=== PATIENT | female | born 1965 | race Caucasian/White ===

== ENCOUNTER 2019-01-07 20:09 | Inpatient (IN) | payer SELFPAY ==
[~2019-01-07 20:09] MED LIST: ISOVUE-370 76%-LOCM 1 ML ONE
[2019-01-07 21:23] LABS: #Basophils 0.1 thou/uL (0.0-0.2); #Eosinphils 0.1 thou/uL (0.0-0.7); #Lymphocytes 2.1 thou/uL (1.20-3.40); #Monocytes 0.6 thou/uL (0.11-0.59); #Neutrophils 3.8 thou/uL (1.40-6.50); %Eosinophils 1.2 % (0.0-10.0); %Lymphocytes 31.6 % (21.0-51.0); %Monocytes 8.3 % (0.0-10.0); %Neutrophils 57.9 % (42.0-75.0); ALT (SGPT) 47 U/L (8-55); AST (SGOT) 276 U/L (5-34); Albumin 2.8 g/dL (3.5-5.0); Alkaline Phosphatase 179 U/L (40-150); Anion Gap 12 mmol/L (10-20); BUN (Urea Nitrogen) 4 mg/dL (9.8-20.1); Bilirubin, Total 6.5 mg/dL (0.2-1.2); Calc. Creatinine Clearance 0 mL/min (70-130); Calcium 8.5 mg/dL (7.8-10.44); Carbon Dioxide 33 mmol/L (22-29); Chloride 89 mmol/L (98-107); Estimated GFR-MDRD Greater than 90; Globulin 4.7 g/dL (2.4-3.5); Glucose 114 mg/dL (70-105); Hemoglobin 11.9 g/dL (12.0-16.0); Lipase 55 U/L (8-78); Mean Corpuscular HGB CONC 33.2 g/dL (32.0-36.0); Mean Corpuscular Hemoglobin 34.5 pg (27.0-31.0); Mean Platelet Volume 10.2 fL (7.4-10.4); Platelet Count 70 thou/uL (130-400); Platelet Morphology Comment Appears Decreased; Protein, Total 7.5 g/dL (6.0-8.3); RBC Distribution Width 12.5 % (11.5-14.5); Red Blood Cell (RBC) Count 3.46 mill/uL (4.20-5.40); Sodium 131 mmol/L (136-145); White Blood Cell (WBC) Count 6.6 thou/uL (4.8-10.8)
[2019-01-07 21:28] LABS: Potassium 2.8 mmol/L (3.5-5.1)
[2019-01-07 22:11] LABS: Bilirubin Large (Negative); Blood, Urine Negative (Negative); Clarity TURBID (Clear); Glucose, Urine (Dipstick) Negative (Negative); Leukocyte Moderate (Negative); Nitrite Positive (Negative); Protein, Urine (Dipstick) Trace mg/dL (Neg-Trace); RBC/HPF 0-3 HPF (0-3); Specific Gravity, Urine 1.018 (1.002-1.036); WBC/HPF 21-50 HPF (0-3); pH, Urine 5.5 (5.0-9.0)
[2019-01-07 22:12] LABS: Hyaline Casts/LPF >50 HYALINE CAST LPF (0-3 Hyaline); Pathc Cast-AUWi Flag 34.48 (0-2.49); Yeast-AUWi Flag 112.9 (0-25.0)
[2019-01-07 22:17] LABS: Bacteria/HPF 4+ HPF (None Seen)
[2019-01-07 22:18] LABS: Other Casts/LPF 7-10 COARSE GRAN LPF (0-3 Hyaline)
[2019-01-07] MEDS ORDERED: diphenhydrAMINE 50 MG/ML VIAL ONE (22:30)
[2019-01-07] MEDS ORDERED: Metoclopramide HCl 10 MG/2 ML VIAL ONE (22:30)
[2019-01-07] MEDS ORDERED: Pot Chloride/Pot Bicarb/Cit Ac 25 mEq Effervescent Tablet ONE (22:35)
[2019-01-07] MEDS ORDERED: Potassium Bicarbonate/Cit Ac 25 MEQ TAB ONE (22:36)
[2019-01-07] MEDS ORDERED: Nitrofurantoin Macrocrystal 50 MG CAP PO SCH (23:15)
[2019-01-08] MEDS ORDERED: Piperacillin/Tazobactam 4.5 GM VIAL ONE (03:50)
[2019-01-08 03:53] LABS: INR-International Normal Ratio 1.6; PTT 40.4 SEC (22.9-36.1); Prothrombin Time 19.5 SEC (12.0-14.7)
[2019-01-08] MEDS ORDERED: Ondansetron PF 4 MG/2 ML Vial ONE ×2 (04:03→10:48)
[2019-01-08 05:15] LABS: HBCM Index 0.06 S/CO (0-0.79); HBSAg Index 0.32 S/CO (0-0.99); Hep A IgM AB Non-Reactive (NonReactive); Hep B Surf Ag Non-Reactive S/CO (NonReactive); Hepatitis B Core IgM Abs Non-Reactive (NonReactive)
[2019-01-08 05:20] LABS: Hep C IgG Ab Reflex HepC Qnt (NonReactive); Hep C Index 7.32 S/CO (0-0.79)
--- NOTE | 2019-01-08 07:13 | CT ---
CT ABDOMEN AND PELVIS WITH IV CONTRAST: Date: 01/07/19 HISTORY: Right lower quadrant abdominal pain. FINDINGS: A small hiatal hernia is present. There is decreased attenuation of the liver compared to the spleen consistent with fatty infiltration. No hepatic mass is seen. The spleen, pancreas, and adrenal glands are normal. Small low density lesions in the kidneys are likely cysts. The gallbladder is distended with multiple calcified gallstones. There is a moderate amount of free fluid in the abdomen and pelvi s. There are vascular calcifications without evidence of aneurysmal dilatation of the abdominal aorta. N o pneumoperitoneum or lymphadenopathy is seen. A recanalized umbilical vein is present. No evidence o f portal vein or splenic vein thrombosis. Uterus is present. There are degenerative changes in the spine. The small bowel loops are not abnorma lly dilated. There is tiny left pleural effusion. IMPRESSION: 1. Mild patchy infiltrates versus atelectatic changes at the lung bases. 2. Tiny left pleural effusions. 3. Fatty liver. 4. Ascites. 5. Cholelithiasis. 6. Small renal cysts. 7. Small hiatal hernia. POS: [facility]
--- NOTE | 2019-01-08 07:20 | ULT ---
ULTRASOUND ABDOMEN: Date: 01/08/19 HISTORY: Abdominal pain, nausea and vomiting. FINDINGS: The liver demonstrates increased echogenicity with intrahepatic ductal dilatation of the left lobe. T here is echogenic sludge and small shadowing gallstones in a distended gallbladder. The gallbladder w all is thickened, measuring 5.0 mm. The common duct measures 6.0 mm in diameter. The right kidney is normal. The pancreas is obscured by overlying bowel gas. There is free fluid consistent with mild asc ites in the right upper quadrant. There is decreased blood flow in the main portal vein with hepatofu gal flow. IMPRESSION: 1. Fatty liver. 2. Distended gallbladder with sludge, small shadowing gallstones and gallbladder wall thickening. 3. Mild ascites. 4. Decreased flow in the main portal vein with hepatofugal flow. 5. If there is concern for acute cholecystitis, further evaluation with HIDA scan would be helpful. POS: [facility]
[2019-01-08] MEDS ORDERED: Sodium Chloride 0.9% 1,000 ML IV SCH (08:45)
[2019-01-08] MEDS ORDERED: Dicyclomine 20 MG TAB ONE ×2 (09:17→16:23)
[2019-01-08] MEDS: Dicyclomine 20 MG TAB PO SCH ×4 (09:19→20:30)
[2019-01-08 09:21] LABS: Anion Gap 13 mmol/L (10-20); BUN (Urea Nitrogen) Less than 4 mg/dL (9.8-20.1); Calc. Creatinine Clearance 0 mL/min (70-130); Carbon Dioxide 32 mmol/L (22-29); Chloride 94 mmol/L (98-107); Estimated GFR-MDRD Greater than 90; Glucose 81 mg/dL (70-105); Sodium 136 mmol/L (136-145)
[2019-01-08] MEDS: Multivitamins, Adult 10 ML, Folic Acid 1 MG, Thiamine HCl 100 MG in Dextrose 5 %-0.45 %... IV SCH (10:00)
[2019-01-08 10:34] LABS: Folate (Folic Acid) 2.3 ng/mL (7.0-31.4)
[2019-01-08] MEDS: Ondansetron PF 4 MG/2 ML Vial IVP PRN ×2 (10:49→18:22)
[2019-01-08 11:27] LABS: Medtox Reader # READER 4; THC/Cannabinoid Screen Detected (NotDetected)
[2019-01-08 11:28] LABS: Amphetamine Not Detected (NotDetected); Barbiturates Screen Not Detected (NotDetected); Benzodiazepine Screen Not Detected (NotDetected); Cocaine Metabolite Screen Not Detected (NotDetected); Medtox Control Line Valid? VALID (VALID); Methadone Not Detected (NotDetected); Methamphetamine Not Detected (NotDetected); Opiate Screen Not Detected (NotDetected); Oxycodone Screen Not Detected (NotDetected); Phencyclidine (PCP) Not Detected (NotDetected); Tricyclic Screen Not Detected (NotDetected)
[2019-01-08] MEDS ORDERED: Lorazepam 2 MG/ML VIAL SLOW IVP PRN (12:36)
[2019-01-08] MEDS ORDERED: Lorazepam 2 MG/ML VIAL ONE (12:46)
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
[2019-01-08] MEDS ORDERED: Morphine 4 MG/ML VIAL ONE (16:22)
--- NOTE | 2019-01-08 16:24 | NM ---
EXAM: Nuclear medicine hepatobiliary scan: HISTORY: Abdominal pain, vomiting, cholelithiasis COMPARISON: None. RADIOPHARMACEUTICAL: 4.9 mcI technetium 99m labeled mebrofenin intravenously. FINDINGS: There is opacification of an enlarged liver with excretion into the gallbladder and emptying into the bowel by 60 minutes. Following administration of: 8 ounces of ensure, gallbladder ejection fraction equals8% which is abno rmally low. IMPRESSION: Hepatomegaly with abnormally low gallbladder ejection fraction. No evidence for cystic duct obstructi on.
[2019-01-08] MEDS: Morphine 4 MG/ML VIAL SLOW IVP PRN (16:27)
[2019-01-08] MEDS ORDERED: Potassium Chloride 20 MEQ TAB PO SCH (17:00)
--- NOTE | 2019-01-08 17:45 | PDOC.EVN ---
Event Note - Event Note Event Note: Came to evaluate patient after HIDA scan. Patient extremely tremulous and nervous, and continues to have some vomiting. Suspect impending DTs. Care discussed with Dr. Maya. Will move patient to inpatient status. Will increase IV Lorazepam to 1 mg Q6 hours, continue banana bag Q 24 hours. Also reviewed case with Dr. Huizar, who does not recommend falguni given chronicity of problem. Continue anti-emetics.
[2019-01-08 17:49] VITALS: BMI 22.6
[2019-01-08] MEDS: Sodium Chloride 0.9% 1,000 ML IV SCH (18:19)
[2019-01-08] MEDS: Lorazepam 2 MG/ML VIAL SLOW IVP SCH ×2 (18:23→23:26)
[2019-01-08] MEDS: cefTRIAXone\\ROCEPHIN 1 GM in Sodium Chloride 0.9% 100 ML IVPB SCH (18:26)
[2019-01-08] MEDS ORDERED: Nitrofurantoin Monohyd/M-Cryst 100 MG CAP PO SCH (21:00)
[2019-01-08] MEDS: diphenhydrAMINE 25 MG CAP PO PRN (22:12)
[2019-01-08 23:36] LABS: Potassium 3.4 mmol/L (3.5-5.1)
[2019-01-09 05:05] LABS: ALT (SGPT) 38 U/L (8-55); AST (SGOT) 245 U/L (5-34); Albumin 2.4 g/dL (3.5-5.0); Alkaline Phosphatase 151 U/L (40-150); Anion Gap 8 mmol/L (10-20); BUN (Urea Nitrogen) 6 mg/dL (9.8-20.1); Bilirubin, Total 8.3 mg/dL (0.2-1.2); Calc. Creatinine Clearance 96 mL/min (70-130); Calcium 8.1 mg/dL (7.8-10.44); Carbon Dioxide 34 mmol/L (22-29); Chloride 95 mmol/L (98-107); Estimated GFR-MDRD Greater than 90; Glucose 73 mg/dL (70-105); Potassium 3.5 mmol/L (3.5-5.1); Protein, Total 6.4 g/dL (6.0-8.3); Sodium 133 mmol/L (136-145)
[2019-01-09] MEDS: Lorazepam 2 MG/ML VIAL SLOW IVP SCH ×4 (05:22→23:22)
[2019-01-09] MEDS: Sodium Chloride 0.9% 1,000 ML IV SCH (08:27)
[2019-01-09] MEDS: Dicyclomine 20 MG TAB PO SCH ×4 (08:28→20:10)
--- NOTE | 2019-01-09 08:56 | PDOC.PN ---
- Subjective Encounter Start Date: 01/09/19 Encounter Start Time: 08:54 Subjective: still has vague abd discomfort - Objective Resuscitation Status - Order Detail: 01/08/19 08:37 Resuscitation Status Routine Co-Sign Provider: Resuscitation Status: FULL: Full Resuscitation Discussed with: Patient YOLETTE Reviewed: Yes Vital Signs & Weight: Vital Signs (12 hours) Temp Pulse Resp BP BP BP Pulse Ox 01/09/19 08:20 106 H 95/57 L 01/09/19 08:00 99.1 F 120 H 18 95/57 L 92 L 01/09/19 04:00 98.8 F 116 H 18 121/71 92 L 01/08/19 23:58 99.1 F 107 H 18 114/69 92 L Weight Weight 119 lb 14.903 oz I&O: 01/08/19 01/09/19 01/10/19 06:59 06:59 06:59 Intake Total 1300 708 Output Total 200 Balance 1100 708 Result Diagrams: 01/07/19 20:53 01/09/19 04:40 Phys Exam - Physical Examination Neck: no JVD Respiratory: clear to auscultation bilateral Cardiovascular: RRR, no significant murmur Gastrointestinal: soft distended, absent bowel sounds Musculoskeletal: no edema Dx/Plan (1) Ileus Code(s): K56.7 - ILEUS, UNSPECIFIED Status: Acute (2) Cholelithiases Code(s): K80.20 - CALCULUS OF GALLBLADDER W/O CHOLECYSTITIS W/O OBSTRUCTION Status: Acute Qualifiers: Cholelithiasis location: gallbladder Cholecystitis acuity: acute Biliary obstruction: without biliary obstruction (3) UTI (urinary tract infection) Status: Acute Qualifiers: Urinary tract infection type: acute cystitis Hematuria presence: without hematuria Qualified Code(s): N30.00 - Acute cystitis without hematuria (4) Hepatitis C Code(s): B19.20 - UNSPECIFIED VIRAL HEPATITIS C WITHOUT HEPATIC COMA Status: Chronic Qualifiers: Viral hepatitis chronicity: chronic Hepatic coma status: without hepatic coma Qualified Code(s): B18.2 - Chronic viral hepatitis C (5) Alcohol withdrawal Code(s): F10.239 - ALCOHOL DEPENDENCE WITH WITHDRAWAL, UNSPECIFIED Status: Acute Qualifiers: Complication of substance-induced condition: with unspecified complication Qualified Code(s): F10.239 - Alcohol dependence with withdrawal, unspecified - Plan 2 view abd -: cont lorazepam, banana bag * .
[2019-01-09] MEDS: Multivitamins, Adult 10 ML, Folic Acid 1 MG, Thiamine HCl 100 MG in Dextrose 5 %-0.45 %... IV SCH (09:51)
--- NOTE | 2019-01-09 09:52 | RAD ---
EXAM: XR Abdomen 2 View PROVIDED CLINICAL HISTORY: Vomiting COMPARISON: CT 01/07/2019 FINDINGS: The visualized lung bases demonstrate bibasilar pleural and/or parenchymal opacity. There is no evide nce for pneumoperitoneum. The abdominal bowel gas pattern is nonspecific. No radiographically apparen t urinary tract calculi. IMPRESSION: Nonspecific bowel gas pattern.
[2019-01-09] MEDS: Morphine 4 MG/ML VIAL SLOW IVP PRN (12:52)
[2019-01-09] MEDS: diphenhydrAMINE 25 MG CAP PO PRN ×2 (13:39→22:09)
[2019-01-09] MEDS: cefTRIAXone\\ROCEPHIN 1 GM in Sodium Chloride 0.9% 100 ML IVPB SCH (17:35)
[2019-01-10] MEDS ORDERED: ALPRAZolam 0.5 MG TAB PO PRN (00:56)
[2019-01-10] MEDS: Sodium Chloride 0.9% 1,000 ML IV SCH ×2 (01:05→17:40)
[2019-01-10] MEDS: Morphine 4 MG/ML VIAL SLOW IVP PRN ×3 (01:55→22:17)
[2019-01-10] MEDS: Lorazepam 2 MG/ML VIAL SLOW IVP SCH ×4 (05:39→23:11)
--- NOTE | 2019-01-10 11:30 | PDOC.PN ---
- Subjective Encounter Start Date: 01/10/19 Encounter Start Time: 11:28 Subjective: hallucinating during past 4 hrs, no calm, apropriate - Objective Resuscitation Status - Order Detail: 01/08/19 08:37 Resuscitation Status Routine Co-Sign Provider: Resuscitation Status: FULL: Full Resuscitation Discussed with: Patient YOLETTE Reviewed: Yes Vital Signs & Weight: Vital Signs (12 hours) Temp Pulse Resp BP BP Pulse Ox 01/10/19 08:00 98.8 F 111 H 20 104/63 97 01/10/19 04:00 98.2 F 97 16 117/77 94 L 01/10/19 03:55 94 L Weight Weight 119 lb 14.903 oz I&O: 01/09/19 01/10/19 01/11/19 06:59 06:59 06:59 Intake Total 1300 3108 Output Total 200 Balance 1100 3108 Result Diagrams: 01/07/19 20:53 01/09/19 04:40 Phys Exam - Physical Examination Neck: no JVD Respiratory: clear to auscultation bilateral Cardiovascular: RRR, no significant murmur Gastrointestinal: soft, positive bowel sounds minimal tenderness Neurological: non-focal mildly tremulous Dx/Plan (1) Ileus Code(s): K56.7 - ILEUS, UNSPECIFIED Status: Ruled-out (2) Cholelithiases Code(s): K80.20 - CALCULUS OF GALLBLADDER W/O CHOLECYSTITIS W/O OBSTRUCTION Status: Acute Qualifiers: Cholelithiasis location: gallbladder Cholecystitis acuity: acute Biliary obstruction: without biliary obstruction (3) UTI (urinary tract infection) Status: Acute Qualifiers: Urinary tract infection type: acute cystitis Hematuria presence: without hematuria Qualified Code(s): N30.00 - Acute cystitis without hematuria (4) Hepatitis C Code(s): B19.20 - UNSPECIFIED VIRAL HEPATITIS C WITHOUT HEPATIC COMA Status: Chronic Qualifiers: Viral hepatitis chronicity: chronic Hepatic coma status: without hepatic coma Qualified Code(s): B18.2 - Chronic viral hepatitis C (5) Alcohol withdrawal Code(s): F10.239 - ALCOHOL DEPENDENCE WITH WITHDRAWAL, UNSPECIFIED Status: Acute Qualifiers: Complication of substance-induced condition: with delirium Qualified Code(s ): F10.231 - Alcohol dependence with withdrawal delirium - Plan cont banana bag daily, cont lorazepam iv prn. -: GI consult for help sorting out etiology of discomfort, hepatitis, -: cholelithiasis, SBP, ETC * .
[2019-01-10] MEDS: Dicyclomine 20 MG TAB PO SCH ×4 (11:41→22:15)
[2019-01-10] MEDS: Multivitamins, Adult 10 ML, Folic Acid 1 MG, Thiamine HCl 100 MG in Dextrose 5 %-0.45 %... IV SCH (11:45)
[2019-01-10] MEDS ORDERED: Sodium Bicarbonate 2.5 MEQ/5 ML VIAL ONE (14:34)
--- NOTE | 2019-01-10 15:43 | ULT ---
US Paracentesis with Imaging History: [Cirrhosis. Abdominal pain.] Comparison: CT abdomen pelvis January 07, 2019 Findings: Patient was brought to the ultrasound suite. All questions were answered. Informed consent was obtained. Timeout performed. Patient's right lower quadrant was prepped and draped in normal sterile fashion. 3 mL peripheral lido daniel was instilled into the superficial and deep soft tissues. Using a 20-gauge spinal needle at total of 6 mL of straw-colored fluid was aspirated. Patient tolerated procedure well without complica tion. Impression: Technically successful ultrasound-guided diagnostic paracentesis.
[2019-01-10 15:56] LABS: Body Fluid Source Ascites Body Fluid
[2019-01-10 15:57] LABS: BF Color Yellow; BF RBC Count - Manual 158 /cumm; BF WBC/Nonhematics Ct. - Manua 63 /cumm; Clarity Hazy (Clear); Tube # EDTA
[2019-01-10 16:12] LABS: Fluid, LDH 48 U/L (Not Available); Fluid, Protein Less than 1.0 g/dL (Not Available)
[2019-01-10 16:33] LABS: BF Segmented Neutrophils 4 %; Cell Count Non Hematic 25 %; Lymphocytes 71 %
[2019-01-10] MEDS: cefTRIAXone\\ROCEPHIN 1 GM in Sodium Chloride 0.9% 100 ML IVPB SCH (17:41)
[2019-01-10] MEDS: diphenhydrAMINE 25 MG CAP PO PRN (22:16)
[2019-01-10] MEDS ORDERED: Morphine 4 MG/ML VIAL SLOW IVP PRN (23:38)
[2019-01-11] MEDS ORDERED: Senokot S 8.6-50 MG TAB PO SCH (00:15)
[2019-01-11] MEDS: Lorazepam 2 MG/ML VIAL SLOW IVP SCH (05:34)
[2019-01-11] MEDS: Sodium Chloride 0.9% 1,000 ML IV SCH (08:29)
[2019-01-11] MEDS: Dicyclomine 20 MG TAB PO SCH ×4 (08:30→20:14)
[2019-01-11] MEDS: Senokot S 8.6-50 MG TAB PO SCH ×2 (08:30→20:14)
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
[2019-01-11] MEDS ORDERED: Polyethylene Glycol 3350 17 GM Packet PO SCH (09:00)
[2019-01-11] MEDS: prednisoLONE 15 MG/5 ML UDCUP PO SCH (10:23)
[2019-01-11] MEDS ORDERED: Sodium Chloride 0.9% 1,000 ML IV SCH (10:28)
[2019-01-11] MEDS ORDERED: Sodium Chloride 0.9% 500 ML IV SCH (11:00)
[2019-01-11] MEDS ORDERED: Albumin 25% 25 GM/100 ML BOT IVPB SCH (11:15)
[2019-01-11 11:21] LABS: HCV log10 2.301 (.); Hep C PCR-Quant 200 IU/mL (.)
[2019-01-11 11:24] LABS: #Eosinphils 0.1 thou/uL (0.0-0.7); #Lymphocytes 1.3 thou/uL (1.20-3.40); #Monocytes 0.9 thou/uL (0.11-0.59); %Basophils 0.5 % (0.0-1.0); %Eosinophils 1.2 % (0.0-10.0); %Lymphocytes 20.5 % (21.0-51.0); %Monocytes 13.7 % (0.0-10.0); %Neutrophils 64.1 % (42.0-75.0); Hemoglobin 9.7 g/dL (12.0-16.0); Mean Corpuscular HGB CONC 31.8 g/dL (32.0-36.0); Mean Corpuscular Hemoglobin 34.1 pg (27.0-31.0); Mean Platelet Volume 9.9 fL (7.4-10.4); Platelet Count 73 thou/uL (130-400); RBC Distribution Width 12.9 % (11.5-14.5); Red Blood Cell (RBC) Count 2.83 mill/uL (4.20-5.40); White Blood Cell (WBC) Count 6.3 thou/uL (4.8-10.8)
[2019-01-11 11:56] LABS: Anion Gap 9 mmol/L (10-20); BUN (Urea Nitrogen) 11 mg/dL (9.8-20.1); Calc. Creatinine Clearance 109 mL/min (70-130); Calcium 7.3 mg/dL (7.8-10.44); Carbon Dioxide 27 mmol/L (22-29); Chloride 100 mmol/L (98-107); Estimated GFR-MDRD Greater than 90; Glucose 98 mg/dL (70-105); Potassium 3.3 mmol/L (3.5-5.1); Sodium 133 mmol/L (136-145)
[2019-01-11] MEDS: Nystatin 500,000 UNITS/5 ML UDCUP SSW SCH ×3 (13:40→20:14)
[2019-01-11] MEDS: Multivitamins, Adult 10 ML, Folic Acid 1 MG, Thiamine HCl 100 MG in Dextrose 5 %-0.45 %... IV SCH (13:40)
--- NOTE | 2019-01-11 16:56 | PRG ---
DATE OF SERVICE: SUBJECTIVE: This is a 53-year-old female with abdominal pain and abnormal LFTs hospitalized because of the above reason. The patient has had an abdominal CAT scan which reveals a gallstone. The patient has been given Xanax and Ativan, also has some morphine for pain. I saw her several times yesterday, but she was very sleepy and very difficult to arose. This morning again the same thing. She was very sleepy. She had a dose of Ativan this morning at 6. The patient had a diagnostic paracentesis to rule out SBP. The ascitic fluid was basically a transude and does not show any evidence of SBP. Her serum ammonia level is actually 39, which is not high. From the workup so far, it appears she has chronic liver disease, possibly liver cirrhosis, and ascites. She also has positive HCV antibody. The hep C RNA has been ordered and is still pending. PHYSICAL EXAMINATION: GENERAL: Very sleepy, arousable, but very difficult to talk to in a conversation. Tend to fall asleep. VITAL SIGNS: Afebrile. Pulse is 95, blood pressure is 106/68. She is icteric. CARDIOVASCULAR: Lungs within normal limits. ABDOMEN: Distended with ascites. Abdomen is nontender even though she complains of abdominal pain. LABORATORY DATA: From today lytes are normal. Potassium 3.3, glucose is 98, calcium is 7.3. CBC: Hemoglobin 9.7, hematocrit 30.4, MCV 107, platelet count is 73 due to her hypersplenism from liver cirrhosis. IMPRESSION: 1. Abdominal pain and findings of liver cirrhosis with lab data. 2. Positive HCV antibody. Her HCV-RNA pending. 3. Ascites. Spontaneous bacterial peritonitis ruled out by negative paracentesis itself. 4. Normal ammonia level, but she is kind of drowsy, mostly from the pain medication and also the Ativan and Xanax. Although, I had seen her several times, I had difficulty having any concrete ideas on what is going on with this lady as she is mostly sleepy and difficult to get a proper history. I instructed the nurse to cut off all the sedatives. Dr. Villasenor is on-call for me and he will evaluate the patient again tomorrow. We will make further recommendations physical findings. Because of her age and family history of colon cancer, I believe she probably should have an esophagogastroduodenoscopy and colonoscopy. This can be done by Dr. Villasenor, who is on-call for me. Job ID: [id number]
[2019-01-11] MEDS: cefTRIAXone\\ROCEPHIN 1 GM in Sodium Chloride 0.9% 100 ML IVPB SCH (17:13)
[2019-01-11] MEDS: Lorazepam 2 MG/ML VIAL SLOW IVP PRN (20:21)
[2019-01-11] MEDS: diphenhydrAMINE 25 MG CAP PO PRN (23:52)
[2019-01-12] MEDS: Sodium Chloride 0.9% 1,000 ML IV SCH ×3 (01:18→20:50)
[2019-01-12] MEDS: Lorazepam 2 MG/ML VIAL SLOW IVP PRN ×3 (02:41→22:16)
[2019-01-12 08:17] LABS: ALT (SGPT) 32 U/L (8-55); AST (SGOT) 156 U/L (5-34); Albumin 2.3 g/dL (3.5-5.0); Alkaline Phosphatase 105 U/L (40-150); Anion Gap 9 mmol/L (10-20); BUN (Urea Nitrogen) 7 mg/dL (9.8-20.1); Bilirubin, Total 8.9 mg/dL (0.2-1.2); Calc. Creatinine Clearance 133 mL/min (70-130); Calcium 7.8 mg/dL (7.8-10.44); Carbon Dioxide 27 mmol/L (22-29); Chloride 102 mmol/L (98-107); Estimated GFR-MDRD Greater than 90; Globulin 3.5 g/dL (2.4-3.5); Glucose 85 mg/dL (70-105); Potassium 3.1 mmol/L (3.5-5.1); Protein, Total 5.8 g/dL (6.0-8.3); Sodium 135 mmol/L (136-145)
[2019-01-12] MEDS: Senokot S 8.6-50 MG TAB PO SCH ×2 (08:50→20:53)
[2019-01-12] MEDS: Nystatin 500,000 UNITS/5 ML UDCUP SSW SCH ×4 (08:51→20:52)
[2019-01-12] MEDS: Dicyclomine 20 MG TAB PO SCH ×3 (08:51→18:10)
[2019-01-12] MEDS: prednisoLONE 15 MG/5 ML UDCUP PO SCH (08:55)
[2019-01-12] MEDS: Multivitamins, Adult 10 ML, Folic Acid 1 MG, Thiamine HCl 100 MG in Dextrose 5 %-0.45 %... IV SCH (11:41)
--- NOTE | 2019-01-12 13:35 | PDOC.PN ---
- Subjective Encounter Start Date: 01/11/19 Encounter Start Time: 10:00 Subjective: pt up in bed confused - Objective Resuscitation Status - Order Detail: 01/08/19 08:37 Resuscitation Status Routine Co-Sign Provider: Resuscitation Status: FULL: Full Resuscitation Discussed with: Patient Vital Signs & Weight: Vital Signs (12 hours) Temp Pulse Resp BP BP BP Pulse Ox 01/12/19 08:25 98.0 F 85 20 113/76 92 L 01/12/19 04:00 119/71 01/12/19 03:44 97.5 F L 85 20 119/71 93 L Weight Admit Weight 119 lb 14.4 oz Weight 119 lb 14.4 oz I&O: 01/11/19 01/12/19 01/13/19 06:59 06:59 06:59 Intake Total 2060 1320 Output Total 250 550 Balance 1810 770 Result Diagrams: 01/11/19 11:12 01/12/19 07:51 Phys Exam - Physical Examination Respiratory: no wheezing, no rales, no rhonchi, wheezing present, clear to auscultation bilateral Cardiovascular: RRR, no significant murmur, no rub, gallop, irregular Gastrointestinal: soft, non-tender, no distention, positive bowel sounds Musculoskeletal: no edema, pulses present, edema present Deviation from normal: oriented x2 but cannot have a conversation Dx/Plan (1) Alcoholic hepatitis Code(s): K70.10 - ALCOHOLIC HEPATITIS WITHOUT ASCITES Status: Acute (2) Alcohol withdrawal Code(s): F10.239 - ALCOHOL DEPENDENCE WITH WITHDRAWAL, UNSPECIFIED Status: Acute Qualifiers: Complication of substance-induced condition: with delirium Qualified Code(s ): F10.231 - Alcohol dependence with withdrawal delirium (3) Hepatitis C Code(s): B19.20 - UNSPECIFIED VIRAL HEPATITIS C WITHOUT HEPATIC COMA Status: Chronic Qualifiers: Viral hepatitis chronicity: chronic Hepatic coma status: without hepatic coma Qualified Code(s): B18.2 - Chronic viral hepatitis C (4) UTI (urinary tract infection) Status: Acute Qualifiers: Urinary tract infection type: acute cystitis Hematuria presence: without hematuria Qualified Code(s): N30.00 - Acute cystitis without hematuria - Plan will discontinue scheduled ativan, pt's maddrey score indicated >32 -: will add prednisolone, No sbp on fluid, continue abx for uti -: will give pt extra fluid due to poor output -: nystatin for oral yeast * . Review of Systems - Review of Systems Respiratory: negative: Cough, Dry, Shortness of Breath, Hemoptysis, SOB with Excertion, Pleuritic Pain, Sputum, Wheezing Cardiovascular: negative: chest pain, palpitations, orthopnea, paroxysmal nocturnal dyspnea, edema, light headedness, other Gastrointestinal: Abdominal Pain - Medications/Allergies Allergies/Adverse Reactions: Allergies Allergy/AdvReac Type Severity Reaction Status Date / Time No Known Drug Allergies Allergy Verified 01/08/19 17:41 Medications: Current Medications Dicyclomine HCl (Bentyl) 20 mg PO QID [facility] Last Admin: 01/12/19 08:51 Dose: 20 mg Diphenhydramine HCl (Benadryl) 25 mg PO Q4H PRN PRN Reason: Itching & Hives (mild) Last Admin: 01/11/19 23:52 Dose: 25 mg Multivitamins 10 ml/ Folic Acid 1 mg/ Thiamine HCl 100 mg / Dextrose/Sodium Chloride 1,011.2 mls @ 100 mls/hr IV Q24HR [facility] Last Admin: 01/12/19 11:41 Dose: 1,011.2 mls Ceftriaxone Sodium 1 gm/ (Sodium Chloride) 100 mls @ 200 mls/hr IVPB Q24HR [facility] Last Admin: 01/11/19 17:13 Dose: 100 mls Sodium Chloride (Normal Saline 0.9%) 1,000 mls @ 100 mls/hr IV .Q10H [facility] Last Admin: 01/12/19 11:17 Dose: 1,000 mls Lactulose (Lactulose) 20 gm PO DAILY [facility] Last Admin: 01/12/19 08:52 Dose: 20 gm Lorazepam (Ativan) 1 mg SLOW IVP Q6H PRN PRN Reason: Alcohol Withdrawal Last Admin: 01/12/19 11:47 Dose: 1 mg Nystatin (Mycostatin) 500,000 units SSW QID [facility] Last Admin: 01/12/19 11:18 Dose: Not Given Ondansetron HCl (Zofran) 4 mg IVP Q6H PRN PRN Reason: Nausea/Vomiting Last Admin: 01/08/19 18:22 Dose: 4 mg Prednisolone (Orapred) 15 mg PO DAILY [facility] Last Admin: 01/12/19 08:55 Dose: 15 mg Senna/Docusate Sodium (Senokot S) 2 tab PO BID [facility] Last Admin: 01/12/19 08:50 Dose: 2 tab Sodium Chloride (Flush - Normal Saline) 10 ml IVF Q12HR [facility] Last Admin: 01/12/19 11:18 Dose: 10 ml Sodium Chloride (Flush - Normal Saline) 10 ml IVF PRN PRN PRN Reason: Saline Flush Last Admin: 01/11/19 05:34 Dose: 10 ml
--- NOTE | 2019-01-12 13:43 | PDOC.PN ---
- Subjective Encounter Start Date: 01/12/19 Encounter Start Time: 13:38 Subjective: pt up in bed awake but tries to get up and is confused - Objective Resuscitation Status - Order Detail: 01/08/19 08:37 Resuscitation Status Routine Co-Sign Provider: Resuscitation Status: FULL: Full Resuscitation Discussed with: Patient Vital Signs & Weight: Vital Signs (12 hours) Temp Pulse Resp BP BP BP Pulse Ox 01/12/19 08:25 98.0 F 85 20 113/76 92 L 01/12/19 04:00 119/71 01/12/19 03:44 97.5 F L 85 20 119/71 93 L Weight Admit Weight 119 lb 14.4 oz Weight 119 lb 14.4 oz I&O: 01/11/19 01/12/19 01/13/19 06:59 06:59 06:59 Intake Total 2060 1320 Output Total 250 550 Balance 1810 770 Result Diagrams: 01/11/19 11:12 01/12/19 07:51 Phys Exam - Physical Examination Respiratory: no wheezing, no rales, no rhonchi, wheezing present, clear to auscultation bilateral Cardiovascular: RRR, no significant murmur, no rub, gallop, irregular Gastrointestinal: soft, positive bowel sounds mild distention Musculoskeletal: no edema, pulses present, edema present Dx/Plan (1) Alcoholic hepatitis Code(s): K70.10 - ALCOHOLIC HEPATITIS WITHOUT ASCITES Status: Acute (2) Alcohol withdrawal Code(s): F10.239 - ALCOHOL DEPENDENCE WITH WITHDRAWAL, UNSPECIFIED Status: Acute Qualifiers: Complication of substance-induced condition: with delirium Qualified Code(s ): F10.231 - Alcohol dependence with withdrawal delirium (3) Hepatitis C Code(s): B19.20 - UNSPECIFIED VIRAL HEPATITIS C WITHOUT HEPATIC COMA Status: Chronic Qualifiers: Viral hepatitis chronicity: chronic Hepatic coma status: without hepatic coma Qualified Code(s): B18.2 - Chronic viral hepatitis C (4) UTI (urinary tract infection) Status: Acute Qualifiers: Urinary tract infection type: acute cystitis Hematuria presence: without hematuria Qualified Code(s): N30.00 - Acute cystitis without hematuria - Plan pt confused, will stop multivitamin and add iv thiamine -: will continue prednisolone for now -: will call her mother about her overall prognosis * . Review of Systems - Review of Systems Respiratory: negative: Cough, Dry, Shortness of Breath, Hemoptysis, SOB with Excertion, Pleuritic Pain, Sputum, Wheezing Cardiovascular: negative: chest pain, palpitations, orthopnea, paroxysmal nocturnal dyspnea, edema, light headedness, other Gastrointestinal: negative: Nausea, Vomiting, Abdominal Pain, Diarrhea, Constipation, Melena, Hematochezia, Other - Medications/Allergies Allergies/Adverse Reactions: Allergies Allergy/AdvReac Type Severity Reaction Status Date / Time No Known Drug Allergies Allergy Verified 01/08/19 17:41 Medications: Current Medications Dicyclomine HCl (Bentyl) 20 mg PO QID [facility] Last Admin: 01/12/19 08:51 Dose: 20 mg Diphenhydramine HCl (Benadryl) 25 mg PO Q4H PRN PRN Reason: Itching & Hives (mild) Last Admin: 01/11/19 23:52 Dose: 25 mg Folic Acid (Folvite) 1 mg PO DAILY [facility] Ceftriaxone Sodium 1 gm/ (Sodium Chloride) 100 mls @ 200 mls/hr IVPB Q24HR [facility] Last Admin: 01/11/19 17:13 Dose: 100 mls Sodium Chloride (Normal Saline 0.9%) 1,000 mls @ 100 mls/hr IV .Q10H [facility] Last Admin: 01/12/19 11:17 Dose: 1,000 mls Potassium Chloride 10 meq/ (Device) 100 mls @ 100 mls/hr IVPB NOW [facility] Lactulose (Lactulose) 20 gm PO DAILY [facility] Last Admin: 01/12/19 08:52 Dose: 20 gm Lorazepam (Ativan) 1 mg SLOW IVP Q6H PRN PRN Reason: Alcohol Withdrawal Last Admin: 01/12/19 11:47 Dose: 1 mg Nystatin (Mycostatin) 500,000 units SSW QID [facility] Last Admin: 01/12/19 11:18 Dose: Not Given Ondansetron HCl (Zofran) 4 mg IVP Q6H PRN PRN Reason: Nausea/Vomiting Last Admin: 01/08/19 18:22 Dose: 4 mg Potassium Chloride (Klor-Con) 40 meq PO NOW [facility] Prednisolone (Orapred) 15 mg PO DAILY [facility] Last Admin: 01/12/19 08:55 Dose: 15 mg Senna/Docusate Sodium (Senokot S) 2 tab PO BID [facility] Last Admin: 01/12/19 08:50 Dose: 2 tab Sodium Chloride (Flush - Normal Saline) 10 ml IVF Q12HR [facility] Last Admin: 01/12/19 11:18 Dose: 10 ml Sodium Chloride (Flush - Normal Saline) 10 ml IVF PRN PRN PRN Reason: Saline Flush Last Admin: 01/11/19 05:34 Dose: 10 ml Thiamine HCl (Thiamine Hcl) 100 mg SLOW IVP Q24HR [facility]
[2019-01-12] MEDS ORDERED: Potassium Chloride 10 MEQ in Premix Bag 1 BAG IVPB SCH (13:45)
[2019-01-12] MEDS: Potassium Chloride 10 MEQ in Premix Bag 1 BAG IVPB SCH ×2 (14:25→15:46)
--- NOTE | 2019-01-12 15:32 | EKG ---
Test Reason : Blood Pressure : / mmHG Vent. Rate : 086 BPM Atrial Rate : 086 BPM P-R Int : 160 ms QRS Dur : 090 ms QT Int : 378 ms P-R-T Axes : 029 022 044 degrees QTc Int : 452 ms Normal sinus rhythm Nonspecific ST and T wave abnormality Abnormal ECG Confirmed by IRAIDA NUÑEZ ([id number]), managing editor GIOVANNI FERREIRA ([id number] on 01/12/2019 3:32:17 PM Referred By: Confirmed By:IRAIDA NUÑEZ
[2019-01-12] MEDS: Thiamine HCl 200 MG/2 ML VIAL SLOW IVP SCH (15:47)
--- NOTE | 2019-01-12 18:33 | PRG ---
DATE OF SERVICE: 01/12/2019 SUBJECTIVE: Ms. Harris has been fairly confused. She is not hallucinating per the nurses, but she states her abdomen feels a little bit tight. Her nurse, Herminia notes that she has been a little wheezy and has been trying to get her breathing treatment. MEDICATIONS: 1. Rocephin. 2. Folvite. 3. Lactulose. 4. Ativan. 5. Nystatin. 6. Zofran. 7. Orapred. 8. Senokot. 9. Normal saline 100. 10. Thiamine q.24 hours. OBJECTIVE: VITAL SIGNS: Temperature is 97, pulse 85, blood pressure 129/79. GENERAL: The patient is jaundiced. She is protuberant, distended. She has a little bit of raspy wheezing. EXTREMITIES: Reveal trace edema. She has muscle wasting. LABORATORY DATA: Sodium 135, potassium 3.1, BUN and creatinine are 7 and 0.4, glucose 85. AST is 156, down from 245. Bilirubin is 8.9, alkaline phosphatase is 105. Protein is 5.8, albumin is 2.3. Folate was low on admission. Microbiology; urine culture was positive for E coli on admission. Stool occult blood was negative. Ascitic bacterial culture negative. Ascitic fluid negative for SBP. Serum ascitic albumin gradient greater than 1.1. White count 6.3, hemoglobin 9.7, platelet count 73,000. Serology positive for hepatitis C. Review of the imaging showed ascites, distended gallbladder with some sludge and some small shadowing gallstones. Hepatobiliary scan showed a low ejection fraction, but no evidence for cystic duct obstruction. There was emptying of the bowel too. CT on admission showed ascites, fatty liver, and cholelithiasis. It does not appear that a serum alcohol level was obtained on admission. ASSESSMENT: 1. No signs for acute cholecystitis or biliary obstruction. 2. Alcoholic liver disease with cirrhosis. 3. No evidence of SBP. 4. More awake today. Apparently yesterday, she was completely snored and asleep for most of the day, now she is awake, but a little bit confused. There are no overt signs of DTs. RECOMMENDATIONS: Continue multivitamin, thiamine, and folate daily. We would continue the multivitamin, as she will not take p.o., she needs to have banana bag daily. We will follow along with you. Job ID: [id number]
[2019-01-12] MEDS: cefTRIAXone\\ROCEPHIN 1 GM in Sodium Chloride 0.9% 100 ML IVPB SCH (18:45)
[2019-01-12] MEDS: Lorazepam 2 MG/ML VIAL SLOW IVP SCH (18:50)
[2019-01-12] MEDS ORDERED: ALPRAZolam 0.5 MG TAB PO SCH (22:45)
[2019-01-13] MEDS: Lorazepam 2 MG/ML VIAL SLOW IVP SCH (00:06)
[2019-01-13 02:00] LABS: ALT (SGPT) 41 U/L (8-55); AST (SGOT) 167 U/L (5-34); Albumin 2.5 g/dL (3.5-5.0); Alkaline Phosphatase 113 U/L (40-150); Anion Gap 12 mmol/L (10-20); BUN (Urea Nitrogen) 6 mg/dL (9.8-20.1); Calc. Creatinine Clearance 124 mL/min (70-130); Carbon Dioxide 24 mmol/L (22-29); Chloride 102 mmol/L (98-107); Estimated GFR-MDRD Greater than 90; Globulin 3.7 g/dL (2.4-3.5); Glucose 93 mg/dL (70-105); Potassium 3.2 mmol/L (3.5-5.1); Protein, Total 6.2 g/dL (6.0-8.3); Sodium 135 mmol/L (136-145)
[2019-01-13 04:04] LABS: #Eosinphils 0.1 thou/uL (0.0-0.7); #Lymphocytes 1.3 thou/uL (1.20-3.40); #Neutrophils 4.4 thou/uL (1.40-6.50); %Basophils 0.6 % (0.0-1.0); %Lymphocytes 19.5 % (21.0-51.0); %Monocytes 14.3 % (0.0-10.0); %Neutrophils 64.6 % (42.0-75.0); Hemoglobin 10.6 g/dL (12.0-16.0); Mean Platelet Volume 9.6 fL (7.4-10.4); Platelet Count 87 thou/uL (130-400); Red Blood Cell (RBC) Count 3.02 mill/uL (4.20-5.40); White Blood Cell (WBC) Count 6.9 thou/uL (4.8-10.8)
[2019-01-13 04:18] LABS: Magnesium 1.1 mg/dL (1.6-2.6)
[2019-01-13 04:28] LABS: Phosphorus 1.3 mg/dL (2.3-4.7)
[2019-01-13] MEDS ORDERED: Potassium Phosphate 12 MMOL in Sodium Chloride 0.9% 100 ML IVPB SCH (04:45)
[2019-01-13] MEDS ORDERED: Magnesium Sulfate 4 GM in Sodium Chloride 0.9% 250 ML 250 ML IVPB SCH (04:45)
[2019-01-13] MEDS ORDERED: Lorazepam 2 MG/ML VIAL SLOW IVP PRN (07:46)
[2019-01-13] MEDS ORDERED: K-Phos Neutral 250 MG TAB PO SCH (08:00)
[2019-01-13] MEDS ORDERED: Folic Acid 1 MG TAB PO SCH (09:00)
[2019-01-13] MEDS ORDERED: Potassium Phosphate 9 MMOL in Sodium Chloride 0.9% 100 ML IVPB SCH (12:00)
[2019-01-13] MEDS: Nystatin 500,000 UNITS/5 ML UDCUP SSW SCH ×4 (12:34→21:07)
[2019-01-13] MEDS: prednisoLONE 15 MG/5 ML UDCUP PO SCH (12:34)
[2019-01-13] MEDS: Senokot S 8.6-50 MG TAB PO SCH ×2 (12:35→21:05)
--- NOTE | 2019-01-13 14:42 | PRG ---
DATE OF SERVICE: 01/13/2019 HISTORY OF PRESENT ILLNESS: Ms. Harris is sedated fairly heavily. She received some Ativan from the nurse, who has not given her lactulose today or yesterday, 1 mg of Ativan at 9:30 this morning. It does not look like she got any last night or since Monday, some folic acid, multivitamin, and thiamine. Arousing her, she states her abdomen hurts. She points to left upper quadrant today. Actually on exam she states just basically all over, but she is really hard to get history from as she is very sedated. PHYSICAL EXAMINATION: VITAL SIGNS: Temperature is 98.5. She has been afebrile since admission. Pulse 96 to 100, O2 saturation 90%. Blood pressure 104/70. GENERAL: She is icteric. LUNGS: Decreased breath sounds at bases. ABDOMEN: Soft but protuberant. She complaints of tenderness. There is no rebound or guarding. EXTREMITIES: Reveal trace edema. LABORATORY STUDIES: 1. White count 6.9, hemoglobin 10.6, platelet count 87,000. INR was 1.6 on the , it has not been checked. Sodium 135, potassium 3.2, chloride 102. Creatinine 6.44, phosphorus 1.3, magnesium 1.1, bilirubin 10, AST AST , ALT 113. ASSESSMENT: 1. Alcoholic liver disease with hepatitis C and cirrhosis. 2. Ascites with no SBP. 3. Complaints of abdominal pain, likely due to ascites. We will see if we can get her therapeutic paracentesis tomorrow. 4. She has gallstones, was having focal right upper quadrant tenderness. No fever. No signs of sepsis or cholecystitis. 5. The patient has psychiatric illness, we have asked the nurses to stop sedating her with Ativan as she is not in a DT window anymore. She has been here since the . We will let her wake up and if she is to be treated for psychiatric disorder, then treat with appropriate psychiatric medications. These issues have been discussed with the admitting physician as well. 6. Replace electrolytes as ordered and replace per protocol. Job ID: [id number]
[2019-01-13] MEDS: Multivitamins, Adult 10 ML, Folic Acid 1 MG, Thiamine HCl 100 MG in Dextrose 5 %-0.45 %... IV SCH (17:37)
[2019-01-13] MEDS: cefTRIAXone\\ROCEPHIN 1 GM in Sodium Chloride 0.9% 100 ML IVPB SCH (17:44)
[2019-01-13 19:07] LABS: HCV log10 2.041 (.); Hep C PCR-Quant 110 IU/mL (.)
[2019-01-13] MEDS: Thiamine HCl 200 MG/2 ML VIAL SLOW IVP SCH (19:33)
[2019-01-13] MEDS: Sodium Chloride 0.9% 1,000 ML IV SCH (19:33)
[2019-01-13] MEDS ORDERED: Morphine 2 MG/ML SYRINGE SLOW IVP PRN (21:40)
--- NOTE | 2019-01-13 22:35 | PDOC.PN ---
- Subjective Encounter Start Date: 01/13/19 Encounter Start Time: 14:00 Subjective: pt up in bed intermittent confusion - Objective Resuscitation Status - Order Detail: 01/08/19 08:37 Resuscitation Status Routine Co-Sign Provider: Resuscitation Status: FULL: Full Resuscitation Discussed with: Patient Vital Signs & Weight: Vital Signs (12 hours) Temp Pulse Resp BP BP BP Pulse Ox 01/13/19 20:00 114/71 92 L 01/13/19 19:22 92 L 01/13/19 19:16 97.9 F 99 24 H 114/71 84 L 01/13/19 16:00 98.5 F 100 18 121/76 92 L Weight Admit Weight 119 lb 14.4 oz Weight 119 lb 14.4 oz I&O: 01/12/19 01/13/19 01/14/19 06:59 06:59 06:59 Intake Total 1320 1451 650 Output Total 550 4 Balance 770 1451 646 Result Diagrams: 01/13/19 03:35 01/13/19 01:25 Phys Exam - Physical Examination Neck: no nodes, no JVD, supple, full ROM Respiratory: no wheezing, no rales, no rhonchi, wheezing present, clear to auscultation bilateral Cardiovascular: RRR, no significant murmur, no rub, gallop, irregular Gastrointestinal: soft, positive bowel sounds distended Dx/Plan (1) Alcoholic hepatitis Code(s): K70.10 - ALCOHOLIC HEPATITIS WITHOUT ASCITES Status: Acute (2) Alcohol withdrawal Code(s): F10.239 - ALCOHOL DEPENDENCE WITH WITHDRAWAL, UNSPECIFIED Status: Acute Qualifiers: Complication of substance-induced condition: with delirium Qualified Code(s ): F10.231 - Alcohol dependence with withdrawal delirium (3) Hepatitis C Code(s): B19.20 - UNSPECIFIED VIRAL HEPATITIS C WITHOUT HEPATIC COMA Status: Chronic Qualifiers: Viral hepatitis chronicity: chronic Hepatic coma status: without hepatic coma Qualified Code(s): B18.2 - Chronic viral hepatitis C (4) UTI (urinary tract infection) Status: Acute Qualifiers: Urinary tract infection type: acute cystitis Hematuria presence: without hematuria Qualified Code(s): N30.00 - Acute cystitis without hematuria - Plan will continue abx for uti -: continue prednisolone for now -: will undergo paracentesis. No sbp -: will stop scheduled ativan, encourage oral intake -: updated brother about pt's overall medical issues * . Review of Systems - Review of Systems Respiratory: negative: Cough, Dry, Shortness of Breath, Hemoptysis, SOB with Excertion, Pleuritic Pain, Sputum, Wheezing Cardiovascular: negative: chest pain, palpitations, orthopnea, paroxysmal nocturnal dyspnea, edema, light headedness, other Gastrointestinal: negative: Nausea, Vomiting, Abdominal Pain, Diarrhea, Constipation, Melena, Hematochezia, Other - Medications/Allergies Allergies/Adverse Reactions: Allergies Allergy/AdvReac Type Severity Reaction Status Date / Time No Known Drug Allergies Allergy Verified 01/08/19 17:41 Medications: Current Medications Ceftriaxone Sodium 1 gm/ (Sodium Chloride) 100 mls @ 200 mls/hr IVPB Q24HR [facility] Last Admin: 01/13/19 17:44 Dose: 100 mls Multivitamins 10 ml/ Folic Acid 1 mg/ Thiamine HCl 100 mg / Dextrose/Sodium Chloride 1,011.2 mls @ 75 mls/hr IV Q24HR [facility] Last Admin: 01/13/19 17:37 Dose: 1,011.2 mls Lactulose (Lactulose) 20 gm PO DAILY [facility] Last Admin: 01/13/19 12:33 Dose: Not Given Morphine Sulfate (Morphine) 2 mg SLOW IVP ONE PRN PRN Reason: Moderate to Severe Pain (6-10) Stop: 01/14/19 07:00 Last Admin: 01/13/19 21:53 Dose: 2 mg Nystatin (Mycostatin) 500,000 units SSW QID [facility] Last Admin: 01/13/19 21:07 Dose: 500,000 units Ondansetron HCl (Zofran) 4 mg IVP Q6H PRN PRN Reason: Nausea/Vomiting Last Admin: 01/08/19 18:22 Dose: 4 mg Prednisolone (Orapred) 15 mg PO DAILY [facility] Last Admin: 01/13/19 12:34 Dose: Not Given Senna/Docusate Sodium (Senokot S) 2 tab PO BID [facility] Last Admin: 01/13/19 21:05 Dose: 2 tab Sodium Chloride (Flush - Normal Saline) 10 ml IVF Q12HR [facility] Last Admin: 01/13/19 21:08 Dose: 10 ml Sodium Chloride (Flush - Normal Saline) 10 ml IVF PRN PRN PRN Reason: Saline Flush Last Admin: 01/11/19 05:34 Dose: 10 ml
[2019-01-14 04:51] LABS: ALT (SGPT) 46 U/L (8-55); AST (SGOT) 159 U/L (5-34); Albumin 2.3 g/dL (3.5-5.0); Alkaline Phosphatase 110 U/L (40-150); Anion Gap 7 mmol/L (10-20); BUN (Urea Nitrogen) 7 mg/dL (9.8-20.1); Calc. Creatinine Clearance 105 mL/min (70-130); Calcium 7.8 mg/dL (7.8-10.44); Carbon Dioxide 30 mmol/L (22-29); Chloride 103 mmol/L (98-107); Estimated GFR-MDRD Greater than 90; Globulin 3.5 g/dL (2.4-3.5); Glucose 126 mg/dL (70-105); Magnesium 1.6 mg/dL (1.6-2.6); Phosphorus 1.7 mg/dL (2.3-4.7); Protein, Total 5.8 g/dL (6.0-8.3); Sodium 137 mmol/L (136-145)
[2019-01-14] MEDS ORDERED: Potassium Phosphate 12 MMOL in Sodium Chloride 0.9% 100 ML IVPB SCH (05:30)
--- NOTE | 2019-01-14 08:02 | ULT ---
LIMITED ABDOMINAL ULTRASOUND: HISTORY: Evaluation for paracentesis. TECHNIQUE: Real-time imaging of all four quadrants was performed. FINDINGS: Only a small amount of fluid is seen in the right lower quadrant. Since this was requested as a ther apeutic examination, I do not feel there is sufficient fluid for paracentesis at this time. IMPRESSION: Minimal ascites. POS: [facility]
[2019-01-14] MEDS: Ondansetron PF 4 MG/2 ML Vial IVP PRN (08:46)
[2019-01-14] MEDS: Senokot S 8.6-50 MG TAB PO SCH ×2 (08:49→20:25)
[2019-01-14] MEDS: Nystatin 500,000 UNITS/5 ML UDCUP SSW SCH ×4 (08:49→20:25)
[2019-01-14] MEDS ORDERED: Morphine 2 MG/ML SYRINGE SLOW IVP SCH (09:30)
[2019-01-14] MEDS ORDERED: ISOVUE-370 76%-LOCM 1 ML ONE (09:38)
--- NOTE | 2019-01-14 09:56 | PDOC.PN ---
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 -: No specific etiology identified currently to explain abd pain. Pain meds -: and sedation d/c'd. Last BM 48h ago, taking liquids but no solid po. - Objective Resuscitation Status - Order Detail: 01/08/19 08:37 Resuscitation Status Routine Co-Sign Provider: Resuscitation Status: FULL: Full Resuscitation Discussed with: Patient MAR Reviewed: Yes Vital Signs & Weight: Vital Signs (12 hours) Temp Pulse Resp BP BP Pulse Ox 01/14/19 07:48 97.7 F 101 H 24 H 101/66 96 01/14/19 04:00 97.9 F 100 20 104/58 L 93 L Weight Admit Weight 119 lb 14.4 oz Weight 119 lb 14.4 oz I&O: 01/13/19 01/14/19 01/15/19 06:59 06:59 06:59 Intake Total 1451 650 Output Total 4 Balance 1451 646 Result Diagrams: 01/13/19 03:35 01/14/19 04:15 Additional Labs: Microbiology 01/08/19 10:13 Stool Stool Occult Blood (DUSTY) - Final 01/07/19 21:54 Urine clean catch Urine Culture - Final Escherichia coli 01/10/19 15:05 Ascites Fluid Bacterial Culture - Preliminary Laboratory Tests 01/07/19 01/08/19 01/08/19 20:53 04:14 09:22 Hgb 11.9 L Plt Count 70 L Potassium Phosphorus Magnesium Total Bilirubin AST Ammonia Vitamin B12 1550 H Folate 2.30 L Hepatitis C Antibody Reflex HepC Qnt H 01/11/19 01/11/19 01/12/19 11:12 11:12 07:51 Hgb 9.7 L Plt Count 73 L Potassium 3.3 L 3.1 L Phosphorus Magnesium Total Bilirubin 8.9 H AST 156 H Ammonia Vitamin B12 Folate Hepatitis C Antibody 01/13/19 01/13/19 01/13/19 01:25 01:25 03:35 Hgb Plt Count Potassium 3.2 L Phosphorus 1.3 L Magnesium 1.1 L Total Bilirubin 10.0 H AST 167 H Ammonia 58 Vitamin B12 Folate Hepatitis C Antibody 01/14/19 04:15 Hgb Plt Count Potassium Phosphorus 1.7 L Magnesium 1.6 Total Bilirubin 9.0 H AST 159 H Ammonia Vitamin B12 Folate Hepatitis C Antibody Radiology Reviewed by me: Yes (ABD sono - minimal ascites) Phys Exam - Physical Examination alert, moaning, agitated + sclera icterus HEENT: PERRLA, oral pharynx no lesions Neck: no nodes, no JVD, supple, full ROM Respiratory: no wheezing, no rales, no rhonchi, clear to auscultation bilateral tachycardia S1, S2 Cardiovascular: no significant murmur, no rub, gallop distended, firm, no palpable mass, tenderness diffusely Gastrointestinal: positive bowel sounds Musculoskeletal: no edema, pulses present Neurological: normal sensation, moves all 4 limbs alert, responsive, agitated Skin: normal turgor, cap refill <2 seconds Dx/Plan (1) Abdominal pain Code(s): R10.9 - UNSPECIFIED ABDOMINAL PAIN Status: Acute Qualifiers: Abdominal location: generalized Qualified Code(s): R10.84 - Generalized abdominal pain Comment: Etiology unclear, repeat CT abd/pel today, Morphine Sulfate 2mg IV x 1 now then q4h prn, monitor I/O's (2) Alcoholic hepatitis Code(s): K70.10 - ALCOHOLIC HEPATITIS WITHOUT ASCITES Status: Chronic Qualifiers: Ascites presence: with ascites Qualified Code(s): K70.11 - Alcoholic hepatitis with ascites Comment: Small amount of ascites on abd sono, supportive mgmt (3) UTI (urinary tract infection) Status: Acute Qualifiers: Urinary tract infection type: acute cystitis Hematuria presence: without hematuria Qualified Code(s): N30.00 - Acute cystitis without hematuria Comment: Continue Rocephin IV daily (4) Hepatitis C Code(s): B19.20 - UNSPECIFIED VIRAL HEPATITIS C WITHOUT HEPATIC COMA Status: Chronic Qualifiers: Viral hepatitis chronicity: chronic Hepatic coma status: without hepatic coma Qualified Code(s): B18.2 - Chronic viral hepatitis C Comment: Outpt monitoring and mgmt (5) Hypokalemia Code(s): E87.6 - HYPOKALEMIA Status: Acute Comment: Klor-con 40meq BID, serial K+ monitoring - Plan continue antibiotics, PT/OT, director social welfare, out of bed/ambulate, DVT proph w/ SCDs Continue supportive mgmt -: Morphine Sulfate 2mg IV q4h prn -: Repeat CT abd/pel today -: Banana bag daily -: OOB/ambulate * KCL 40meq BID * AM lab: BMP
[2019-01-14] MEDS: prednisoLONE 15 MG/5 ML UDCUP PO SCH (11:06)
--- NOTE | 2019-01-14 11:15 | CT ---
CT ABDOMEN AND PELVIS WITH IV CONTRAST: HISTORY: Cirrhosis. Persistent abdominal pain. COMPARISON: 01/07/2019 FINDINGS: ABDOMEN: There has been development of moderate bilateral pleural effusions with bibasilar lung peña ges, which appear to be predominantly atelectasis, but could also indicate some patchy infiltrative c hange. The parenchymal changes have also definitely worsened, as compared to the prior exam. A mode rate hiatal hernia is seen. The liver, spleen, and pancreas regions are unremarkable. Gallstones are noted within a distended ga llbladder. Ascites has increased, as compared to the prior exam. The right and left adrenal glands and the right and left kidneys are normal in size. A small hypoden sity involving the lower pole of the right kidney is most likely a tiny cyst. No significant periaor tic or mesenteric adenopathy. PELVIS: There is no evidence of adenopathy, mass, or free fluid. IMPRESSION: 1. Development of moderately large bilateral pleural effusions with bibasilar lung changes, which ar e probably related to a combination of atelectasis and infiltrate. 2. Interval increase in ascites. 3. Distended gallbladder with small gallstones. No biliary ductal dilatation. POS: [facility]
[2019-01-14] MEDS: Multivitamins, Adult 10 ML, Folic Acid 1 MG, Thiamine HCl 100 MG in Dextrose 5 %-0.45 %... IV SCH (18:14)
[2019-01-14] MEDS: cefTRIAXone\\ROCEPHIN 1 GM in Sodium Chloride 0.9% 100 ML IVPB SCH (18:49)
[2019-01-14] MEDS: Morphine 2 MG/ML SYRINGE SLOW IVP PRN (20:26)
[2019-01-15 04:39] LABS: Anion Gap 7 mmol/L (10-20); BUN (Urea Nitrogen) 8 mg/dL (9.8-20.1); Calc. Creatinine Clearance 109 mL/min (70-130); Calcium 7.7 mg/dL (7.8-10.44); Carbon Dioxide 29 mmol/L (22-29); Chloride 103 mmol/L (98-107); Estimated GFR-MDRD Greater than 90; Glucose 121 mg/dL (70-105); Potassium 3.9 mmol/L (3.5-5.1); Sodium 135 mmol/L (136-145)
[2019-01-15] MEDS: Morphine 2 MG/ML SYRINGE SLOW IVP PRN ×2 (05:43→10:11)
[2019-01-15] MEDS: Senokot S 8.6-50 MG TAB PO SCH ×2 (09:02→21:44)
[2019-01-15] MEDS: Nystatin 500,000 UNITS/5 ML UDCUP SSW SCH ×4 (09:02→21:41)
[2019-01-15] MEDS: prednisoLONE 15 MG/5 ML UDCUP PO SCH (09:03)
--- NOTE | 2019-01-15 11:07 | PDOC.PN ---
- Subjective Encounter Start Date: 01/15/19 Encounter Start Time: 10:45 Subjective: f/u for alcohol-induced cirrhosis with persistent abd pain. c/o of diffuse -: pain and some RUQ tenderness. Minimal po intake. Passsing liquid stools -: per nursing. - Objective Resuscitation Status - Order Detail: 01/08/19 08:37 Resuscitation Status Routine Co-Sign Provider: Resuscitation Status: FULL: Full Resuscitation Discussed with: Patient MAR Reviewed: Yes Vital Signs & Weight: Vital Signs (12 hours) Temp Pulse Resp BP BP Pulse Ox 01/15/19 08:00 98.2 F 94 24 H 102/60 94 L 01/15/19 03:08 97.5 F L 104 H 20 100/61 93 L 01/14/19 23:48 97.7 F 88 16 91/57 L 91 L Weight Admit Weight 119 lb 14.4 oz Weight 119 lb 14.4 oz I&O: 01/14/19 01/15/19 01/16/19 06:59 06:59 06:59 Intake Total 650 2400 Output Total 4 Balance 646 2400 Result Diagrams: 01/13/19 03:35 01/15/19 04:08 Additional Labs: Microbiology 01/08/19 10:13 Stool Stool Occult Blood (DUSTY) - Final 01/07/19 21:54 Urine clean catch Urine Culture - Final Escherichia coli 01/10/19 15:05 Ascites Fluid Bacterial Culture - Preliminary Laboratory Tests 01/07/19 01/08/19 01/08/19 20:53 04:14 09:22 Hgb 11.9 L Plt Count 70 L Potassium Phosphorus Magnesium Total Bilirubin AST Ammonia Vitamin B12 1550 H Folate 2.30 L Hepatitis C Antibody Reflex HepC Qnt H 01/11/19 01/11/19 01/12/19 11:12 11:12 07:51 Hgb 9.7 L Plt Count 73 L Potassium 3.3 L 3.1 L Phosphorus Magnesium Total Bilirubin 8.9 H AST 156 H Ammonia Vitamin B12 Folate Hepatitis C Antibody 01/13/19 01/13/19 01/13/19 01:25 01:25 03:35 Hgb Plt Count Potassium 3.2 L Phosphorus 1.3 L Magnesium 1.1 L Total Bilirubin 10.0 H AST 167 H Ammonia 58 Vitamin B12 Folate Hepatitis C Antibody 01/14/19 04:15 Hgb Plt Count Potassium Phosphorus 1.7 L Magnesium 1.6 Total Bilirubin 9.0 H AST 159 H Ammonia Vitamin B12 Folate Hepatitis C Antibody Radiology Reviewed by me: Yes (CT a/p - increased ascites, bilat pleural effusions, cholelithias/GB dist) Phys Exam - Physical Examination alert, agitated + scleral icterus HEENT: PERRLA, oral pharynx no lesions Neck: no nodes, no JVD, supple, full ROM diminished in bases Respiratory: no wheezing S1, S2 Cardiovascular: RRR, no significant murmur, no rub, gallop distended, firm, TTP diffusely + fluid wave Gastrointestinal: positive bowel sounds Musculoskeletal: no edema, pulses present Neurological: normal sensation, moves all 4 limbs Skin: normal turgor, cap refill <2 seconds Dx/Plan (1) Abdominal pain Code(s): R10.9 - UNSPECIFIED ABDOMINAL PAIN Status: Acute Qualifiers: Abdominal location: generalized Qualified Code(s): R10.84 - Generalized abdominal pain Comment: Suspect due to GB etiology and ascites, Morphine Sulfate 2mg IV x 1 now then q4h prn, monitor I/O's, consult Gen surgery for cholelithiasis, repeat abd sono for paracentesis (2) UTI (urinary tract infection) Status: Acute Qualifiers: Urinary tract infection type: acute cystitis Hematuria presence: without hematuria Qualified Code(s): N30.00 - Acute cystitis without hematuria Comment: Continue Rocephin IV daily (3) Alcoholic cirrhosis Code(s): K70.30 - ALCOHOLIC CIRRHOSIS OF LIVER WITHOUT ASCITES Status: Chronic Qualifiers: Ascites presence: with ascites Qualified Code(s): K70.31 - Alcoholic cirrhosis of liver with ascites Comment: Add Aldactone 25mg daily, continue MVI IV, Lactulose daily, ? end- stage process (4) Hepatitis C Code(s): B19.20 - UNSPECIFIED VIRAL HEPATITIS C WITHOUT HEPATIC COMA Status: Chronic Qualifiers: Viral hepatitis chronicity: chronic Hepatic coma status: without hepatic coma Qualified Code(s): B18.2 - Chronic viral hepatitis C Comment: Outpt monitoring and mgmt (5) Hypokalemia Code(s): E87.6 - HYPOKALEMIA Status: Acute Comment: Klor-con 40meq BID, serial K+ monitoring, improved - Plan PT/OT, social media job titles, out of bed/ambulate, DVT proph w/SCDs Continue supportive mgmt -: Add Aldactone 25mg daily -: Repeat Abd sono for paracentesis -: Consult Gen Surgery for cholelithiasis -: Consider Dobhoff for enteral feeds * Palliative care screening * AM lab: CMP, CBC
[2019-01-15] MEDS ORDERED: Spironolactone 25 MG TAB PO SCH ×2 (11:15)
--- NOTE | 2019-01-15 12:21 | PRG ---
DATE OF SERVICE: 01/15/2019 SUBJECTIVE: Ms. Saira Harris is a 53-year-old female with history of chronic alcohol abuse, hospitalized with abdominal pain. The patient has had diagnostic paracentesis last week and was found to have no evidence of SBP. The patient was very drowsy and lethargic here over the weekend. Today, she is more awake, alert, and communicative. She is just lying down in bed, does not want to get up. She complains of abdominal pain which is across the abdomen. There is no nausea or vomiting. She had abdominal CAT scan and sonogram yesterday. Initially, it was felt there was large ascites, but however, the radiologist felt the ascites is too minimal to drain. The CAT scan did show yesterday increasing ascites and also hydrothorax. The patient is more awake and communicative. She complained of abdominal pain, which is across the lower abdomen. She denies any abdominal pain over the epigastric area or right upper quadrant. She does have gallstone on sonogram. She has been off the Ativan and Xanax, and she is only getting . PHYSICAL EXAMINATION: GENERAL: Very thin built, appears comfortable today, but she has received morphine this morning. She is awake and communicative. VITAL SIGNS: Afebrile, pulse 94, blood pressure 102/60. CARDIOVASCULAR: Lungs are normal. ABDOMEN: More distended today and abdomen is very tight actually. Abdomen is tender across the lower abdomen. There is no rebound or guarding. LABORATORY DATA: From today, no CBC done today, but last CBC was on 01/13/2019 and she had no leukocytosis, has mild anemia. MCV 109, poly 64, lymphocytes 19, monocytes 14. Chemistry panel, chem 7 is normal. Glucose is 121, calcium 7.7. Stool for occult blood is negative. I discussed with the nurses taking care of the patient. She has not eaten anything at all and the tray is full. She is having a lot of loose stool because of lactulose. RECOMMENDATIONS: 1. I changed her to clear liquid diet. 2. Ultrasound-guided paracentesis today. 3. Start the patient on Lasix 20 mg once a day and Aldactone 50 once a day. Also, would recommend surgical input to see whether they can give some opinion on the gallstones. Job ID: [id number]
--- NOTE | 2019-01-15 13:42 | CON ---
DATE OF CONSULTATION: 01/15/2019 HISTORY OF PRESENT ILLNESS: Saira Harris is a 53-year-old female patient admitted to the hospitalist service . She has had continued abdominal pain. She has been seen during this hospitalization by GI, Dr. Brandon Villasenor. Dr. La has seen the patient today. Dr. Stapleton asked me to see the patient regarding her abdominal pain. The patient is admitted for abdominal pain. She reports her abdominal pain, diffuse, lower abdomen especially. She has a history of alcoholism. She has a known history of cholelithiasis, ascites, fatty liver, and probably cirrhosis. She has ongoing alcohol abuse, drinking 6 to 12 beers a day. She does not take any medications at home routinely. Past surgical history, ORIF ankle. She has history of tobacco abuse. Dr. La saw her in consultation, 01/10/2019, for a positive hepatitis C, abdominal pain and ascites. During this hospitalization, the patient was noted to have a thrombocytopenia, platelets 70 to 80,000, coagulopathy, abnormal PT/INR, and a bilirubin progressively up to 9. She had abdominal CAT scan on admission, 01/07/2019, demonstrating atelectasis, fatty liver, ascites, cholelithiasis, and a small hiatal hernia. This CAT scan was repeated 01/14/2019, because of abdominal pain, noting pleural effusions, interval increase in ascites, distended gallbladder with small stones. No biliary ductal dilatation. The patient's abdominal ultrasound 01/08/2019 revealed gallstones, fatty liver, distended gallbladder with sludge, mild ascites, decreased flow in the portal vein with hepatofugal flow. HIDA scan ejection fraction performed, 01/08/2019, noting visualization of the gallbladder, no evidence for cystic duct obstruction. PHYSICAL EXAMINATION: VITAL SIGNS: Height 5 feet, 119 pounds, 22 BMI, temperature 97.9, heart rate 115, respiratory rate 24. SKIN: Jaundice. Sclerae icteric. LUNGS: Clear to auscultation. CARDIAC: Rhythm. ABDOMEN: Protuberant, soft, mild tenderness diffusely. Bowel sounds present. EXTREMITIES: Edema. LABORATORY DATA: White count 6, hemoglobin 10.6, platelet count 87,000. PT 19, INR 1.6. Sodium 135, potassium 3.9, bilirubin 9 yesterday, 159 AST yesterday, bilirubin 10 day before. Bilirubin has worsened since admission 6.5 to 10 and today 9. ASSESSMENT AND PLAN: Liver failure, hepatitis, hepatitis C. There is no indication for cholecystectomy and this would be high risk in this patient with acute hepatitis. I would not recommend any surgical intervention at this time. Would follow recommendations of Gastroenterology. The patient has history of hepatitis C and alcoholism, alcohol abuse, and has some degree of cirrhosis. I will see her as needed this hospitalization please call if necessary. Job ID: [id number]
[2019-01-15] MEDS: cefTRIAXone\\ROCEPHIN 1 GM in Sodium Chloride 0.9% 100 ML IVPB SCH (17:39)
[2019-01-15] MEDS: Multivitamins, Adult 10 ML, Folic Acid 1 MG, Thiamine HCl 100 MG in Dextrose 5 %-0.45 %... IV SCH (17:39)
[2019-01-16] MEDS: Morphine 2 MG/ML SYRINGE SLOW IVP PRN ×5 (00:45→21:11)
[2019-01-16 06:13] LABS: Band 9 % (5-11); Lymphocytes 18 % (21-51); MDiff Complete? YES; Macrocytosis SLIGHT = 6-15 cells (100X) (0-5/hpf); Mean Corpuscular HGB CONC 31.4 g/dL (32.0-36.0); Mean Corpuscular Hemoglobin 34.2 pg (27.0-31.0); Mean Platelet Volume 8.9 fL (7.4-10.4); Monocytes 9 % (0-10); Neutrophil 64 % (42-75); Platelet Count 98 thou/uL (130-400); Platelet Morphology Comment Appears Decreased; RBC Distribution Width 14.4 % (11.5-14.5); Red Blood Cell (RBC) Count 2.92 mill/uL (4.20-5.40); White Blood Cell (WBC) Count 9.1 thou/uL (4.8-10.8)
[2019-01-16 06:57] LABS: ALT (SGPT) 48 U/L (8-55); AST (SGOT) 151 U/L (5-34); Albumin 1.9 g/dL (3.5-5.0); Alkaline Phosphatase 102 U/L (40-150); Anion Gap 5 mmol/L (10-20); BUN (Urea Nitrogen) 10 mg/dL (9.8-20.1); Bilirubin, Total 8.8 mg/dL (0.2-1.2); Calc. Creatinine Clearance 107 mL/min (70-130); Calcium 7.6 mg/dL (7.8-10.44); Carbon Dioxide 30 mmol/L (22-29); Chloride 102 mmol/L (98-107); Estimated GFR-MDRD Greater than 90; Globulin 3.4 g/dL (2.4-3.5); Glucose 114 mg/dL (70-105); Potassium 4.2 mmol/L (3.5-5.1); Protein, Total 5.3 g/dL (6.0-8.3); Sodium 133 mmol/L (136-145)
--- NOTE | 2019-01-16 07:35 | RAD ---
EXAM: Single view of the chest HISTORY: Shortness of breath COMPARISON: None FINDINGS: Single view of the chest shows a normal sized cardiomediastinal silhouette. There are multi focal opacities scattered throughout the lungs, right greater than left. There may be a small right pleural effusion. The bones are unremarkable. IMPRESSION: Multifocal infiltrates
--- NOTE | 2019-01-16 07:36 | ULT ---
Sonographic guided paracentesis HISTORY: Tense abdomen. Ascites. FINDINGS: Sonographic survey shows a [id number] amount of free fluid throughout the abdomen. T he largest pocket was in the right lower quadrant. After explaining the procedure and obtaining informed consent, the anterior right lower quadrant abdo men was prepped and draped in usual sterile fashion. Sterile technique, buffered local anesthesia, sonographic guidance, and a right lower quadrant approach were used to carefully advance a 19-gauge Y ueh needle and catheter into the free fluid in the right lower quadrant. The catheter was left to drain a total of 2.35 L clear dark yellow liquid. Catheter was removed. Minimal fluid remains. Patien t tolerated the procedure well and was returned in unchanged condition. IMPRESSION: Technically successful sonographic guided paracentesis.
[2019-01-16] MEDS: Nystatin 500,000 UNITS/5 ML UDCUP SSW SCH ×4 (08:51→20:03)
[2019-01-16] MEDS: prednisoLONE 15 MG/5 ML UDCUP PO SCH (08:52)
[2019-01-16] MEDS: Senokot S 8.6-50 MG TAB PO SCH ×2 (08:53→20:02)
[2019-01-16] MEDS ORDERED: Lorazepam 0.5 MG TAB PO SCH (12:30)
--- NOTE | 2019-01-16 15:10 | PRG ---
DATE OF SERVICE: 01/16/2019 SUBJECTIVE: This is a 53-year-old female with abdominal pain, abnormal LFTs, liver cirrhosis, and ascites. The patient has had a large volume paracentesis yesterday. The patient actually feeling better. Her appetite remains poor. Her oral intake remains very poor. She does complain of pain over lower abdomen. No nausea. No vomiting. PHYSICAL EXAMINATION: GENERAL: Appears comfortable, in no distress. VITAL SIGNS: Her temperature 99.5 degrees Fahrenheit, pulse is 103, and blood pressure is 109/60. CARDIOVASCULAR: First and second heart sounds heard. LUNGS: Clear to auscultation. ABDOMEN: Distended, but softer than yesterday. Abdomen is mildly tender across lower abdomen. There is no rebound or guarding. LABORATORY DATA: From today, WBC 9100, hemoglobin 10, hematocrit 31.8, platelet count 98,000. Chem panel; sodium slightly low at 133, potassium 4.2, chloride is 102, bicarb is 30, bilirubin 8.8. AST 151, ALT 48, alkaline phosphatase 102. Her Hep C came back positive, but very low titers. CLINICAL IMPRESSION: 1. Abdominal pain, etiology unclear. She has had negative abdominal CAT scan and sonogram and also surgical input was seen. They did not recommend surgery. 2. Chronic alcohol abuse. 3. Liver cirrhosis, ascites, thrombocytopenia. 4. Positive HCV RNA, which is a very low titer. The significance is not clear. markedly soft compared to yesterday. She continues to have abdominal pain and negative workup so far, I felt that she probably needs to undergo EGD and colonoscopy. The patient agreed. I explained about the prep and information that she is drinking . Hopefully, she may not need to drink the whole bottle because she has been on lactulose and has been having multiple loose stools. The patient agreed for the procedure. I will plan for EGD and colonoscopy tomorrow. Job ID: [id number]
[2019-01-16] MEDS: Multivitamins, Adult 10 ML, Folic Acid 1 MG, Thiamine HCl 100 MG in Dextrose 5 %-0.45 %... IV SCH (16:51)
[2019-01-16] MEDS: cefTRIAXone\\ROCEPHIN 1 GM in Sodium Chloride 0.9% 100 ML IVPB SCH (16:56)
[2019-01-16] MEDS ORDERED: GoLYTELY 4,000 ml Bottle PO SCH (17:00)
--- NOTE | 2019-01-16 18:30 | PDOC.PN ---
- Subjective Encounter Start Date: 01/16/19 Encounter Start Time: 18:30 Subjective: f/u for ETOH cirrhosis, ascites s/p 2.3L paracentesis with intermittent -: abd pain. Taking Golytely prep for EGD/colonoscopy in am. - Objective Resuscitation Status - Order Detail: 01/08/19 08:37 Resuscitation Status Routine Co-Sign Provider: Resuscitation Status: FULL: Full Resuscitation Discussed with: Patient MAR Reviewed: Yes Vital Signs & Weight: Vital Signs (12 hours) Temp Pulse Resp BP Pulse Ox 01/16/19 08:00 99.5 F 103 H 18 109/60 92 L Weight Admit Weight 119 lb 14.4 oz Weight 119 lb 14.4 oz I&O: 01/15/19 01/16/19 01/17/19 06:59 06:59 06:59 Intake Total 2400 1170 Balance 2400 1170 Result Diagrams: 01/16/19 05:30 01/16/19 05:30 Additional Labs: Microbiology 01/08/19 10:13 Stool Stool Occult Blood (DUSTY) - Final 01/07/19 21:54 Urine clean catch Urine Culture - Final Escherichia coli 01/10/19 15:05 Ascites Fluid Bacterial Culture - Preliminary Laboratory Tests 01/07/19 01/08/19 01/08/19 20:53 04:14 09:22 Hgb 11.9 L Plt Count 70 L Potassium Phosphorus Magnesium Total Bilirubin AST Ammonia Vitamin B12 1550 H Folate 2.30 L Hepatitis C Antibody Reflex HepC Qnt H 01/11/19 01/11/19 01/12/19 11:12 11:12 07:51 Hgb 9.7 L Plt Count 73 L Potassium 3.3 L 3.1 L Phosphorus Magnesium Total Bilirubin 8.9 H AST 156 H Ammonia Vitamin B12 Folate Hepatitis C Antibody 01/13/19 01/13/19 01/13/19 01:25 01:25 03:35 Hgb Plt Count Potassium 3.2 L Phosphorus 1.3 L Magnesium 1.1 L Total Bilirubin 10.0 H AST 167 H Ammonia 58 Vitamin B12 Folate Hepatitis C Antibody 01/14/19 04:15 Hgb Plt Count Potassium Phosphorus 1.7 L Magnesium 1.6 Total Bilirubin 9.0 H AST 159 H Ammonia Vitamin B12 Folate Hepatitis C Antibody Phys Exam - Physical Examination Constitutional: NAD alert, responsive + scleral icterus HEENT: PERRLA, oral pharynx no lesions Neck: no nodes, no JVD, supple, full ROM few scattered rhonchi Respiratory: no wheezing S1, S2 Cardiovascular: RRR, no significant murmur, no rub, gallop distended, minimal TTP + ascites Gastrointestinal: positive bowel sounds Musculoskeletal: no edema, pulses present Neurological: normal sensation, moves all 4 limbs Psychiatric: A&O x 3 Skin: normal turgor, cap refill <2 seconds Dx/Plan (1) Abdominal pain Code(s): R10.9 - UNSPECIFIED ABDOMINAL PAIN Status: Acute Qualifiers: Abdominal location: generalized Qualified Code(s): R10.84 - Generalized abdominal pain Comment: Suspect due to GB etiology and ascites, Morphine Sulfate 2mg IV x 1 now then q4h prn, monitor I/O's, mild improvement, EGD/colonoscopy planned for am (2) UTI (urinary tract infection) Status: Acute Qualifiers: Urinary tract infection type: acute cystitis Hematuria presence: without hematuria Qualified Code(s): N30.00 - Acute cystitis without hematuria Comment: Continue Rocephin IV daily (3) Alcoholic cirrhosis Code(s): K70.30 - ALCOHOLIC CIRRHOSIS OF LIVER WITHOUT ASCITES Status: Chronic Qualifiers: Ascites presence: with ascites Qualified Code(s): K70.31 - Alcoholic cirrhosis of liver with ascites Comment: Add Aldactone 25mg daily, continue MVI IV, Lactulose daily, ? end- stage process (4) Hepatitis C Code(s): B19.20 - UNSPECIFIED VIRAL HEPATITIS C WITHOUT HEPATIC COMA Status: Chronic Qualifiers: Viral hepatitis chronicity: chronic Hepatic coma status: without hepatic coma Qualified Code(s): B18.2 - Chronic viral hepatitis C Comment: Outpt monitoring and mgmt (5) Hypokalemia Code(s): E87.6 - HYPOKALEMIA Status: Acute Comment: Klor-con 40meq daily, serial K+ monitoring, improved - Plan continue antibiotics, PT/OT, social work assistant, out of bed/ambulate, DVT proph w/ SCDs Stable currently -: Ativan 0.5mg po q6h -: Golytely prep for EGD/colonoscopy in am -: Lactulose 20gm daily -: Ensure BID * CM for dispo planning, difficult social situation and placement may be complicated
[2019-01-16] MEDS: Lorazepam 0.5 MG TAB PO SCH (20:04)
[2019-01-17] MEDS: Lorazepam 0.5 MG TAB PO SCH ×3 (03:37→20:30)
[2019-01-17] MEDS: Morphine 2 MG/ML SYRINGE SLOW IVP PRN ×3 (07:36→18:01)
[2019-01-17] MEDS ORDERED: PROPOFOL 200 MG/20 ML VIAL ONE (10:08)
[2019-01-17] MEDS: Senokot S 8.6-50 MG TAB PO SCH ×2 (12:42→20:31)
[2019-01-17] MEDS: Nystatin 500,000 UNITS/5 ML UDCUP SSW SCH ×4 (12:42→20:30)
[2019-01-17] MEDS: prednisoLONE 15 MG/5 ML UDCUP PO SCH (12:42)
[2019-01-17] MEDS: Spironolactone 25 MG TAB PO SCH (12:43)
--- NOTE | 2019-01-17 12:56 | OP ---
DATE OF PROCEDURE: 01/17/2019 OPERATIVE PROCEDURE: Colonoscopy. PREOPERATIVE DIAGNOSIS: Abdominal pain with negative abdominal CAT scan. The pain is persistent and is across the lower abdomen, undergoing colonoscopy. POSTOPERATIVE DIAGNOSES: 1. Hemorrhoids. 2. The exam was done to probably about proximal transverse colon or hepatic flexure. The procedure discontinued after the patient was noted to have a very tight abdomen. There was no colitis or any mucosal abnormalities. DESCRIPTION OF PROCEDURE: The patient was placed in left lateral position and was given sedation by Anesthesia Department. The rectal exam was done and the scope was advanced into the rectum. The patient had hemorrhoids and skin tags. No other lesions felt. A Pentax video colonoscope was introduced into the rectum and advanced all the way into the transverse colon, possibly hepatic flexure. The exam was really not very difficult. I could not advance past the area past hepatic flexure. When we tried to do abdomen compression, it was noted the patient's abdomen is very tight and very firm. Because of the above reason, the procedure terminated. Colon was decompressed . Job ID: [id number]
--- NOTE | 2019-01-17 13:50 | OP ---
DATE OF PROCEDURE: 01/17/2019 OPERATIVE PROCEDURE: Esophagogastroduodenoscopy. PREOPERATIVE DIAGNOSES: Abdominal pain and anemia. POSTOPERATIVE DIAGNOSES: 1. Mild esophagitis, distal esophagus. 2. Hiatus hernia. 3. Normal stomach for mild gastritis. 4. Normal duodenum up to the third and fourth part. DESCRIPTION OF PROCEDURE: The patient was placed in the left lateral position and was given sedation by Anesthesia Department. A Pentax video gastroscope under direct vision passed down the oropharynx past the GE junction into the stomach and subsequently into the descending duodenum. The patient had no esophageal varices. She does have mild mucosal edema and erythema over the distal esophagus. She has hiatal hernia. Retroflexion failed to show any pathology in the fundus or cardia. The gastric mucosa shows some linear erythematous streaks and linear gastritis. There was no gastric varices seen. The gastric body, gastric antrum; no pathology seen. The duodenal bulb, descending duodenum; no pathology seen. The stomach decompressed and the scope removed. Job ID: [id number]
--- NOTE | 2019-01-17 16:28 | PDOC.PN ---
- Subjective Encounter Start Date: 01/17/19 Encounter Start Time: 16:27 Ms. Harris was seen today in follow-up of Abdominal pain and advanced cirrhosis. She says the abdominal pain improved after paracentesis. She does not have any new complaint. - Objective Resuscitation Status - Order Detail: 01/08/19 08:37 Resuscitation Status Routine Co-Sign Provider: Resuscitation Status: FULL: Full Resuscitation Discussed with: Patient MAR Reviewed: Yes Vital Signs & Weight: Vital Signs (12 hours) Temp Pulse Resp BP Pulse Ox 01/17/19 12:30 98.6 F 116 H 22 H 130/82 92 L 01/17/19 12:15 98.5 F 108 H 20 124/79 92 L 01/17/19 12:00 98.5 F 111 H 22 H 118/74 92 L 01/17/19 08:00 92 L 01/17/19 07:50 98.4 F 100 20 107/64 92 L Weight Admit Weight 119 lb 14.4 oz Weight 119 lb 14.4 oz I&O: 01/16/19 01/17/19 01/18/19 06:59 06:59 06:59 Intake Total 1170 4080 Output Total 600 Balance 1170 3480 Result Diagrams: 01/16/19 05:30 01/16/19 05:30 Phys Exam - Physical Examination HEENT: PERRLA Respiratory: no wheezing, no rales, no rhonchi, clear to auscultation bilateral Cardiovascular: RRR, no significant murmur, no rub Gastrointestinal: soft, positive bowel sounds + distended, diffuse tenderness Musculoskeletal: pulses present, edema present 1+ edema in both lower extremities Neurological: non-focal Dx/Plan (1) Abdominal pain Code(s): R10.9 - UNSPECIFIED ABDOMINAL PAIN Status: Acute Qualifiers: Abdominal location: generalized Qualified Code(s): R10.84 - Generalized abdominal pain Comment: Suspect due to GB etiology and ascites, Morphine Sulfate 2mg IV x 1 now then q4h prn, monitor I/O's, mild improvement, EGD/colonoscopy planned for am (2) Alcoholic cirrhosis Code(s): K70.30 - ALCOHOLIC CIRRHOSIS OF LIVER WITHOUT ASCITES Status: Chronic Qualifiers: Ascites presence: with ascites Qualified Code(s): K70.31 - Alcoholic cirrhosis of liver with ascites Comment: Add Aldactone 25mg daily, continue MVI IV, Lactulose daily, ? end- stage process (3) Hepatitis C Code(s): B19.20 - UNSPECIFIED VIRAL HEPATITIS C WITHOUT HEPATIC COMA Status: Chronic Qualifiers: Viral hepatitis chronicity: chronic Hepatic coma status: without hepatic coma Qualified Code(s): B18.2 - Chronic viral hepatitis C Comment: Outpt monitoring and mgmt (4) Alcohol withdrawal Code(s): F10.239 - ALCOHOL DEPENDENCE WITH WITHDRAWAL, UNSPECIFIED Status: Acute Qualifiers: Complication of substance-induced condition: with delirium Qualified Code(s ): F10.231 - Alcohol dependence with withdrawal delirium (5) UTI (urinary tract infection) Status: Acute Qualifiers: Urinary tract infection type: acute cystitis Hematuria presence: without hematuria Qualified Code(s): N30.00 - Acute cystitis without hematuria Comment: Continue Rocephin IV daily - Plan * Abdominal pain-likely due tomassive ascites * Alcoholic Cirrhosis- she is Child class C- or advanced * Alcohol withdrawal- resolved * UTI- due to E. Coli- will change to an oral antibiotic. * Awaiting placement
[2019-01-17] MEDS: Multivitamins, Adult 10 ML, Folic Acid 1 MG, Thiamine HCl 100 MG in Dextrose 5 %-0.45 %... IV SCH (18:07)
[2019-01-17] MEDS: Cefdinir 300 MG CAP PO SCH (20:30)
[2019-01-18] MEDS: Morphine 2 MG/ML SYRINGE SLOW IVP PRN ×3 (00:43→09:32)
[2019-01-18] MEDS: Lorazepam 0.5 MG TAB PO SCH ×3 (05:24→20:58)
[2019-01-18] MEDS: Nystatin 500,000 UNITS/5 ML UDCUP SSW SCH ×4 (08:01→20:58)
[2019-01-18] MEDS: Cefdinir 300 MG CAP PO SCH ×2 (08:01→20:58)
[2019-01-18] MEDS: Spironolactone 25 MG TAB PO SCH (08:01)
[2019-01-18] MEDS: Senokot S 8.6-50 MG TAB PO SCH ×2 (08:02→20:58)
[2019-01-18] MEDS: prednisoLONE 15 MG/5 ML UDCUP PO SCH (08:04)
--- NOTE | 2019-01-18 09:29 | PDOC.PN ---
- Subjective Encounter Start Date: 01/18/19 Encounter Start Time: 09:28 Ms. Harris notes the return of abdominal pain. she also says that her "belly is filling up again". - Objective Resuscitation Status - Order Detail: 01/08/19 08:37 Resuscitation Status Routine Co-Sign Provider: Resuscitation Status: FULL: Full Resuscitation Discussed with: Patient MAR Reviewed: Yes Vital Signs & Weight: Vital Signs (12 hours) Temp Pulse Resp BP BP Pulse Ox 01/18/19 07:39 98.0 F 89 16 102/64 92 L 01/18/19 05:21 98.2 F 99 18 123/88 93 L 01/17/19 23:54 97.6 F 95 18 139/83 93 L Weight Admit Weight 119 lb 14.4 oz Weight 119 lb 14.4 oz I&O: 01/17/19 01/18/19 01/19/19 06:59 06:59 06:59 Intake Total 4080 300 Output Total 600 Balance 3480 300 Result Diagrams: 01/16/19 05:30 01/16/19 05:30 Phys Exam - Physical Examination HEENT: PERRLA + occasional rhonchi, no rales Cardiovascular: RRR, no significant murmur, no rub tense, diffuse tenderness no rebound or guarding Musculoskeletal: edema present 2+ pitting edema in both lower extremities Dx/Plan (1) Abdominal pain Code(s): R10.9 - UNSPECIFIED ABDOMINAL PAIN Status: Acute Qualifiers: Abdominal location: generalized Qualified Code(s): R10.84 - Generalized abdominal pain Comment: Suspect due to GB etiology and ascites, Morphine Sulfate 2mg IV x 1 now then q4h prn, monitor I/O's, mild improvement, EGD/colonoscopy planned for am (2) Alcoholic cirrhosis Code(s): K70.30 - ALCOHOLIC CIRRHOSIS OF LIVER WITHOUT ASCITES Status: Chronic Qualifiers: Ascites presence: with ascites Qualified Code(s): K70.31 - Alcoholic cirrhosis of liver with ascites Comment: Add Aldactone 25mg daily, continue MVI IV, Lactulose daily, ? end- stage process (3) Hepatitis C Code(s): B19.20 - UNSPECIFIED VIRAL HEPATITIS C WITHOUT HEPATIC COMA Status: Chronic Qualifiers: Viral hepatitis chronicity: chronic Hepatic coma status: without hepatic coma Qualified Code(s): B18.2 - Chronic viral hepatitis C Comment: Outpt monitoring and mgmt (4) Alcohol withdrawal Code(s): F10.239 - ALCOHOL DEPENDENCE WITH WITHDRAWAL, UNSPECIFIED Status: Acute Qualifiers: Complication of substance-induced condition: with delirium Qualified Code(s ): F10.231 - Alcohol dependence with withdrawal delirium (5) UTI (urinary tract infection) Status: Acute Qualifiers: Urinary tract infection type: acute cystitis Hematuria presence: without hematuria Qualified Code(s): N30.00 - Acute cystitis without hematuria Comment: Continue Rocephin IV daily (6) Metabolic encephalopathy Code(s): G93.41 - METABOLIC ENCEPHALOPATHY Status: Acute - Plan * Abdominal pain- due to massive ascites- will order a therapeutic paracentesis * Cirrhosis- Advanced * UTI- Continue Omnicef a few more days * Encephalopathy- improved * Awaiting safe discharge placement.
[2019-01-18] MEDS ORDERED: Morphine 2 MG/ML SYRINGE SLOW IVP SCH (10:15)
[2019-01-18 11:36] LABS: #Eosinphils 0.1 thou/uL (0.0-0.7); #Lymphocytes 1.1 thou/uL (1.20-3.40); #Monocytes 1.2 thou/uL (0.11-0.59); #Neutrophils 12.2 thou/uL (1.40-6.50); %Basophils 0.2 % (0.0-1.0); %Lymphocytes 7.3 % (21.0-51.0); %Neutrophils 83.5 % (42.0-75.0); Hemoglobin 11.8 g/dL (12.0-16.0); Mean Corpuscular HGB CONC 31.7 g/dL (32.0-36.0); Mean Corpuscular Hemoglobin 34.7 pg (27.0-31.0); Mean Platelet Volume 9.6 fL (7.4-10.4); Platelet Count 125 thou/uL (130-400); Red Blood Cell (RBC) Count 3.41 mill/uL (4.20-5.40); White Blood Cell (WBC) Count 14.7 thou/uL (4.8-10.8)
[2019-01-18 11:42] LABS: Prothrombin Time 22.6 SEC (12.0-14.7)
[2019-01-18 11:54] LABS: Anion Gap 9 mmol/L (10-20); BUN (Urea Nitrogen) 12 mg/dL (9.8-20.1); Calc. Creatinine Clearance 107 mL/min (70-130); Carbon Dioxide 27 mmol/L (22-29); Chloride 101 mmol/L (98-107); Estimated GFR-MDRD Greater than 90; Glucose 105 mg/dL (70-105); Potassium 4.2 mmol/L (3.5-5.1); Sodium 133 mmol/L (136-145)
--- NOTE | 2019-01-18 12:29 | ULT ---
Abdominal ultrasound, limited CLINICAL HISTORY: Recurrent ascites, evaluation prior to urgent procedure for intense, new onset abdo santosh pain FINDINGS: Sonographic imaging of the 4 abdominal quadrants does reveal moderate generalized ascites e ncasing several loops of bowel. IMPRESSION: Moderate ascites, which is sufficient for requested emergent paracentesis.
--- NOTE | 2019-01-18 12:30 | ULT ---
Ultrasound-guided paracentesis, Urgent: HISTORY: Symptomatic ascites FINDINGS: Informed consent obtained prior to the procedure. Preprocedural imaging demonstrated signif icant ascites throughout the abdomen and pelvis. Right lower quadrant prepped and draped in normal sterile fashion and anesthetized with 1% buffered l idocaine. With direct sonographic guidance, 5 [place] Yueh catheter is advanced into the ascites and removal of the stylet yielded yellow fluid. 2.7 L were removed. The patient tolerated the procedure well. No postprocedural complications. IMPRESSION: Successful ultrasound-guided paracentesis yielding 2.7 L of yellow ascites.
[2019-01-18] MEDS: Multivitamins, Adult 10 ML, Folic Acid 1 MG, Thiamine HCl 100 MG in Dextrose 5 %-0.45 %... IV SCH (17:13)
[2019-01-19] MEDS: Lorazepam 0.5 MG TAB PO SCH ×3 (04:10→20:28)
[2019-01-19] MEDS: Morphine 2 MG/ML SYRINGE SLOW IVP PRN ×3 (06:53→16:52)
[2019-01-19] MEDS: Spironolactone 25 MG TAB PO SCH (08:53)
[2019-01-19] MEDS: Cefdinir 300 MG CAP PO SCH ×2 (08:53→20:28)
[2019-01-19] MEDS: Nystatin 500,000 UNITS/5 ML UDCUP SSW SCH ×4 (08:54→20:28)
[2019-01-19] MEDS: prednisoLONE 15 MG/5 ML UDCUP PO SCH (08:56)
[2019-01-19] MEDS: Senokot S 8.6-50 MG TAB PO SCH ×2 (08:56→20:28)
--- NOTE | 2019-01-19 12:53 | PRG ---
DATE OF SERVICE: 01/19/2019 SUBJECTIVE: This is a 53-year-old , chronic alcohol abuse, liver cirrhosis, ascites and chronic abdominal pain. The patient had been more awake and alert and communicating over the last 3 or 4 days. Unfortunately, she is very sleepy and drowsy all the time. She is not eating very well. She is not ambulating. She is basically lying in bed and trying to sleep all the time. She is still complaining of abdominal pain over the lower abdomen. The patient had extensive workup done including a CAT scan x2, ultrasound, colonoscopy and EGD, everything negative. Also, there is no evidence of any SBP in the ascitic fluid. The patient underwent repeat large volume paracentesis yesterday. However, the paracentesis helped her for a while, now the abdominal pain is back again. Of course, she appears very comfortable. Every time tries to sit up or move around, she starts feeling more pain. PHYSICAL EXAMINATION: GENERAL: Appears comfortable, but she still complains of abdominal pain. VITAL SIGNS: Afebrile. Pulse is 94, blood pressure 96/59. HEENT: Conjunctivae clear. CARDIOVASCULAR SYSTEM: Within normal limits. LUNGS: Within normal limits. ABDOMEN: Nondistended. Abdomen is soft. Abdomen is tender over the lower abdomen. There is no rebound or guarding. LABORATORY DATA: The blood count is stable at 11.8, hematocrit 37.3, MCV 110. Chem 7 is normal except sodium of 133. IMPRESSION: Abdominal pain with negative abdominal workup. It is possible the patient has neuropathy pain. gabapentin for a while and see how she responds to medication. I will try to avoid narcotics if it is possible. I will sign off from today. If there are any new problems, please call me back. Job ID: [id number]
--- NOTE | 2019-01-19 14:26 | PDOC.PN ---
- Subjective Encounter Start Date: 01/19/19 Encounter Start Time: 14:25 Ms. Harris was seen today in follow-up of Abdominal pain and decompensated cirrhosis. She says her abdominal pain is better after the removal of excess fluid. - Objective Resuscitation Status - Order Detail: 01/08/19 08:37 Resuscitation Status Routine Co-Sign Provider: Resuscitation Status: FULL: Full Resuscitation Discussed with: Patient MAR Reviewed: Yes Vital Signs & Weight: Vital Signs (12 hours) Temp Pulse Resp BP BP Pulse Ox 01/19/19 08:52 110/64 01/19/19 08:00 97.8 F 94 24 H 96/59 L 92 L 01/19/19 05:31 93 L Weight Admit Weight 119 lb 14.4 oz Weight 119 lb 14.4 oz I&O: 01/18/19 01/19/19 01/20/19 06:59 06:59 06:59 Intake Total 300 1230 Balance 300 1230 Result Diagrams: 01/18/19 11:04 01/18/19 11:04 Phys Exam - Physical Examination HEENT: PERRLA Respiratory: no wheezing, no rales, no rhonchi, clear to auscultation bilateral Cardiovascular: RRR, no significant murmur, no rub + distended, not as tense, + BS Musculoskeletal: pulses present, edema present 1+ pitting edema in both lower extremities Dx/Plan (1) Alcoholic cirrhosis Code(s): K70.30 - ALCOHOLIC CIRRHOSIS OF LIVER WITHOUT ASCITES Status: Chronic Qualifiers: Ascites presence: with ascites Qualified Code(s): K70.31 - Alcoholic cirrhosis of liver with ascites Comment: Add Aldactone 25mg daily, continue MVI IV, Lactulose daily, ? end- stage process (2) Abdominal pain Code(s): R10.9 - UNSPECIFIED ABDOMINAL PAIN Status: Acute Qualifiers: Abdominal location: generalized Qualified Code(s): R10.84 - Generalized abdominal pain Comment: Suspect due to GB etiology and ascites, Morphine Sulfate 2mg IV x 1 now then q4h prn, monitor I/O's, mild improvement, EGD/colonoscopy planned for am (3) Hepatitis C Code(s): B19.20 - UNSPECIFIED VIRAL HEPATITIS C WITHOUT HEPATIC COMA Status: Chronic Qualifiers: Viral hepatitis chronicity: chronic Hepatic coma status: without hepatic coma Qualified Code(s): B18.2 - Chronic viral hepatitis C Comment: Outpt monitoring and mgmt (4) Alcohol withdrawal Code(s): F10.239 - ALCOHOL DEPENDENCE WITH WITHDRAWAL, UNSPECIFIED Status: Resolved Qualifiers: Complication of substance-induced condition: with delirium Qualified Code(s ): F10.231 - Alcohol dependence with withdrawal delirium (5) UTI (urinary tract infection) Status: Acute Qualifiers: Urinary tract infection type: acute cystitis Hematuria presence: without hematuria Qualified Code(s): N30.00 - Acute cystitis without hematuria Comment: Continue Rocephin IV daily (6) Metabolic encephalopathy Code(s): G93.41 - METABOLIC ENCEPHALOPATHY Status: Acute - Plan * Abdominal pain- likely from massive ascites- she has had some improvement after large volume paracentesis. Continue low sodium diet. Continue Aldactone and paracentesis as needed * Metabolic encephalopathy- improved, likely due to alcoholic encephalopathy, some factor of withdrawal, and hepatic encephalopathy * UTI- continue Omnicef * await safe discharge placement
[2019-01-19] MEDS: Multivitamins, Adult 10 ML, Folic Acid 1 MG, Thiamine HCl 100 MG in Dextrose 5 %-0.45 %... IV SCH (16:54)
[2019-01-20] MEDS: Morphine 2 MG/ML SYRINGE SLOW IVP PRN ×5 (00:25→21:17)
[2019-01-20] MEDS: Lorazepam 0.5 MG TAB PO SCH ×3 (04:55→20:16)
[2019-01-20] MEDS: Spironolactone 25 MG TAB PO SCH (08:43)
[2019-01-20] MEDS: Senokot S 8.6-50 MG TAB PO SCH ×2 (08:44→21:23)
[2019-01-20] MEDS: Cefdinir 300 MG CAP PO SCH ×2 (08:44→21:16)
[2019-01-20] MEDS: Nystatin 500,000 UNITS/5 ML UDCUP SSW SCH ×4 (08:45→21:16)
[2019-01-20] MEDS: prednisoLONE 15 MG/5 ML UDCUP PO SCH (08:49)
--- NOTE | 2019-01-20 15:33 | PDOC.PN ---
- Subjective Encounter Start Date: 01/20/19 Encounter Start Time: 15:31 Ms. Harris was seen today in follow-up of Abdominal pain. She does not have any new complaints today - Objective Resuscitation Status - Order Detail: 01/08/19 08:37 Resuscitation Status Routine Co-Sign Provider: Resuscitation Status: FULL: Full Resuscitation Discussed with: Patient YOLETTE Reviewed: Yes Vital Signs & Weight: Vital Signs (12 hours) Temp Pulse Resp BP Pulse Ox 01/20/19 09:07 98.4 F 100 18 103/65 92 L Weight Admit Weight 119 lb 14.4 oz Weight 119 lb 14.4 oz I&O: 01/19/19 01/20/19 01/21/19 06:59 06:59 06:59 Intake Total 1230 740 240 Balance 1230 740 240 Result Diagrams: 01/18/19 11:04 01/18/19 11:04 Phys Exam - Physical Examination HEENT: PERRLA Respiratory: no wheezing, no rales, no rhonchi, clear to auscultation bilateral Cardiovascular: RRR, no significant murmur, no rub Gastrointestinal: soft, positive bowel sounds + distended non-tender Musculoskeletal: edema present 1+ pitting edema in both lower extremities Neurological: non-focal Dx/Plan (1) Alcoholic cirrhosis Code(s): K70.30 - ALCOHOLIC CIRRHOSIS OF LIVER WITHOUT ASCITES Status: Chronic Qualifiers: Ascites presence: with ascites Qualified Code(s): K70.31 - Alcoholic cirrhosis of liver with ascites Comment: Add Aldactone 25mg daily, continue MVI IV, Lactulose daily, ? end- stage process (2) Abdominal pain Code(s): R10.9 - UNSPECIFIED ABDOMINAL PAIN Status: Acute Qualifiers: Abdominal location: generalized Qualified Code(s): R10.84 - Generalized abdominal pain Comment: Suspect due to GB etiology and ascites, Morphine Sulfate 2mg IV x 1 now then q4h prn, monitor I/O's, mild improvement, EGD/colonoscopy planned for am (3) Hepatitis C Code(s): B19.20 - UNSPECIFIED VIRAL HEPATITIS C WITHOUT HEPATIC COMA Status: Chronic Qualifiers: Viral hepatitis chronicity: chronic Hepatic coma status: without hepatic coma Qualified Code(s): B18.2 - Chronic viral hepatitis C Comment: Outpt monitoring and mgmt (4) Alcohol withdrawal Code(s): F10.239 - ALCOHOL DEPENDENCE WITH WITHDRAWAL, UNSPECIFIED Status: Resolved Qualifiers: Complication of substance-induced condition: with delirium Qualified Code(s ): F10.231 - Alcohol dependence with withdrawal delirium (5) UTI (urinary tract infection) Status: Acute Qualifiers: Urinary tract infection type: acute cystitis Hematuria presence: without hematuria Qualified Code(s): N30.00 - Acute cystitis without hematuria Comment: Continue Rocephin IV daily (6) Metabolic encephalopathy Code(s): G93.41 - METABOLIC ENCEPHALOPATHY Status: Acute - Plan * Cirrhosis- advanced CHILD AYALA class C- with massive ascities- continue aldactone, and therapeutic paracentesis as needed * Abdominal pain- ? etiology- possibly from ascites * UTI- treated- will discontinue antibiotics (she does not meet criteria for Prmiary SBP prophylaxis ) * Awaiting safe discharge disposition.
[2019-01-20] MEDS: Multivitamins, Adult 10 ML, Folic Acid 1 MG, Thiamine HCl 100 MG in Dextrose 5 %-0.45 %... IV SCH (16:34)
[2019-01-20] MEDS ORDERED: Morphine 2 MG/ML SYRINGE SLOW IVP SCH (20:00)
[2019-01-20] MEDS: Ketorolac Tromethamine 30 MG/ML VIAL IVP PRN (22:31)
[2019-01-21] MEDS: Lorazepam 0.5 MG TAB PO SCH ×3 (04:58→19:56)
[2019-01-21 08:21] LABS: #Eosinphils 0.2 thou/uL (0.0-0.7); #Lymphocytes 1.7 thou/uL (1.20-3.40); #Monocytes 1.4 thou/uL (0.11-0.59); #Neutrophils 12.6 thou/uL (1.40-6.50); %Basophils 0.2 % (0.0-1.0); %Eosinophils 1.2 % (0.0-10.0); %Lymphocytes 10.8 % (21.0-51.0); %Monocytes 8.9 % (0.0-10.0); %Neutrophils 78.9 % (42.0-75.0); Hemoglobin 11.1 g/dL (12.0-16.0); Mean Corpuscular HGB CONC 32.1 g/dL (32.0-36.0); Mean Corpuscular Hemoglobin 35.1 pg (27.0-31.0); Mean Platelet Volume 9.5 fL (7.4-10.4); Platelet Count 108 thou/uL (130-400); RBC Distribution Width 14.1 % (11.5-14.5); Red Blood Cell (RBC) Count 3.17 mill/uL (4.20-5.40)
[2019-01-21 08:37] LABS: ALT (SGPT) 76 U/L (8-55); AST (SGOT) 190 U/L (5-34); Alkaline Phosphatase 138 U/L (40-150); Anion Gap 4 mmol/L (10-20); BUN (Urea Nitrogen) 14 mg/dL (9.8-20.1); Bilirubin, Total 10.5 mg/dL (0.2-1.2); Calc. Creatinine Clearance 103 mL/min (70-130); Carbon Dioxide 31 mmol/L (22-29); Chloride 99 mmol/L (98-107); Estimated GFR-MDRD Greater than 90; Globulin 3.6 g/dL (2.4-3.5); Glucose 103 mg/dL (70-105); Protein, Total 5.6 g/dL (6.0-8.3); Sodium 130 mmol/L (136-145)
[2019-01-21] MEDS: Nystatin 500,000 UNITS/5 ML UDCUP SSW SCH ×4 (08:47→19:57)
[2019-01-21] MEDS: Spironolactone 25 MG TAB PO SCH (08:47)
[2019-01-21] MEDS: prednisoLONE 15 MG/5 ML UDCUP PO SCH (08:47)
[2019-01-21] MEDS: Cefdinir 300 MG CAP PO SCH (08:47)
[2019-01-21] MEDS: Senokot S 8.6-50 MG TAB PO SCH ×2 (08:48→19:57)
[2019-01-21] MEDS: Morphine 2 MG/ML SYRINGE SLOW IVP PRN ×2 (10:19→13:52)
[2019-01-21] MEDS: Ketorolac Tromethamine 30 MG/ML VIAL IVP PRN (11:01)
[2019-01-21] MEDS ORDERED: Sodium Bicarbonate 2.5 MEQ/5 ML VIAL ONE (13:34)
--- NOTE | 2019-01-21 14:25 | ULT ---
Ultrasound abdomen, limited CLINICAL HISTORY: recurrent ascites, abdominal pain, symptomatic ascites FINDINGS: There is evidence of interval redevelopment of moderate generalized abdominal ascites more notable wi thin the right abdomen. IMPRESSION: Moderate, recurrent ascites of the abdomen.
--- NOTE | 2019-01-21 15:58 | ULT ---
Ultrasound-guided paracentesis: HISTORY: Symptomatic, recurrent ascites FINDINGS: Informed consent obtained prior to the procedure. Preprocedural imaging demonstrated signif icant ascites throughout the abdomen and pelvis. Right lower quadrant prepped and draped in normal sterile fashion and anesthetized with 1% buffered l idocaine. With direct sonographic guidance, 5 [place] Yueh catheter is advanced into the ascites and removal of the stylet yielded yellow fluid. 3 L were removed. The patient tolerated the procedure well. No postprocedural complications. IMPRESSION: Successful ultrasound-guided paracentesis yielding 3 L of yellow ascites.
[2019-01-21] MEDS: Albumin 25% 25 GM/100 ML BOT IVPB SCH (16:38)
--- NOTE | 2019-01-21 17:31 | PDOC.PN ---
- Subjective Encounter Start Date: 01/21/19 Encounter Start Time: 17:29 Ms. Harris was seen today in follow-up of Cirrhosis and abdominal pain. She has been having fairly severe pain this morning. She notes increased abdominal girth. - Objective Resuscitation Status - Order Detail: 01/08/19 08:37 Resuscitation Status Routine Co-Sign Provider: Resuscitation Status: FULL: Full Resuscitation Discussed with: Patient MAR Reviewed: Yes Vital Signs & Weight: Vital Signs (12 hours) Temp Pulse Resp BP BP Pulse Ox 01/21/19 16:17 98.5 F 84 18 111/70 93 L 01/21/19 15:45 98.4 F 93 18 110/68 95 01/21/19 15:30 98.4 F 89 18 107/70 95 01/21/19 15:15 98.3 F 94 18 106/68 96 01/21/19 08:08 98.2 F 90 20 129/68 92 L 01/21/19 08:00 92 L Weight Admit Weight 119 lb 14.4 oz Weight 119 lb 14.4 oz I&O: 01/20/19 01/21/19 01/22/19 06:59 06:59 06:59 Intake Total 740 1815 Balance 740 1815 Result Diagrams: 01/21/19 07:52 01/21/19 07:52 Phys Exam - Physical Examination HEENT: PERRLA Respiratory: no wheezing, no rales, no rhonchi, clear to auscultation bilateral Cardiovascular: RRR, no significant murmur, no rub Gastrointestinal: positive bowel sounds + distended, mild diffuse tenderness Musculoskeletal: edema present 1-2+ pitting edema Neurological: non-focal Dx/Plan (1) Alcoholic cirrhosis Code(s): K70.30 - ALCOHOLIC CIRRHOSIS OF LIVER WITHOUT ASCITES Status: Chronic Qualifiers: Ascites presence: with ascites Qualified Code(s): K70.31 - Alcoholic cirrhosis of liver with ascites Comment: Add Aldactone 25mg daily, continue MVI IV, Lactulose daily, ? end- stage process (2) Abdominal pain Code(s): R10.9 - UNSPECIFIED ABDOMINAL PAIN Status: Acute Qualifiers: Abdominal location: generalized Qualified Code(s): R10.84 - Generalized abdominal pain Comment: Suspect due to GB etiology and ascites, Morphine Sulfate 2mg IV x 1 now then q4h prn, monitor I/O's, mild improvement, EGD/colonoscopy planned for am (3) Hepatitis C Code(s): B19.20 - UNSPECIFIED VIRAL HEPATITIS C WITHOUT HEPATIC COMA Status: Chronic Qualifiers: Viral hepatitis chronicity: chronic Hepatic coma status: without hepatic coma Qualified Code(s): B18.2 - Chronic viral hepatitis C Comment: Outpt monitoring and mgmt (4) Alcohol withdrawal Code(s): F10.239 - ALCOHOL DEPENDENCE WITH WITHDRAWAL, UNSPECIFIED Status: Resolved Qualifiers: Complication of substance-induced condition: with delirium Qualified Code(s ): F10.231 - Alcohol dependence with withdrawal delirium (5) UTI (urinary tract infection) Status: Acute Qualifiers: Urinary tract infection type: acute cystitis Hematuria presence: without hematuria Qualified Code(s): N30.00 - Acute cystitis without hematuria Comment: Continue Rocephin IV daily (6) Metabolic encephalopathy Code(s): G93.41 - METABOLIC ENCEPHALOPATHY Status: Acute - Plan * Decompensated Cirrhosis- with ascites- it seems her abdominal pain is related to the degree of ascites- will order another large volume paracentesis * Aldactone has been increased, and Lasix added, hopefully this will extend the time between the need for paracentesis * Will add IV albumin * Will continue to monitor her renal function * UTI- will discontinue Omnicef . * Metabolic encephalopthy- resolved
[2019-01-21] MEDS: Multivitamins, Adult 10 ML, Folic Acid 1 MG, Thiamine HCl 100 MG in Dextrose 5 %-0.45 %... IV SCH (18:28)
[2019-01-22 04:50] LABS: Anion Gap 9 mmol/L (10-20); BUN (Urea Nitrogen) 14 mg/dL (9.8-20.1); Calc. Creatinine Clearance 127 mL/min (70-130); Calcium 7.9 mg/dL (7.8-10.44); Carbon Dioxide 25 mmol/L (22-29); Chloride 99 mmol/L (98-107); Estimated GFR-MDRD Greater than 90; Glucose 116 mg/dL (70-105); Sodium 129 mmol/L (136-145)
[2019-01-22] MEDS: Lorazepam 0.5 MG TAB PO SCH ×2 (05:18→11:30)
[2019-01-22] MEDS: Morphine 2 MG/ML SYRINGE SLOW IVP PRN (07:39)
[2019-01-22] MEDS: Spironolactone 100 MG TAB PO SCH (07:45)
[2019-01-22] MEDS: Furosemide 40 MG TAB PO SCH (07:46)
[2019-01-22] MEDS: Senokot S 8.6-50 MG TAB PO SCH ×2 (07:47→19:24)
[2019-01-22] MEDS: Nystatin 500,000 UNITS/5 ML UDCUP SSW SCH (07:48)
[2019-01-22] MEDS: prednisoLONE 15 MG/5 ML UDCUP PO SCH (07:48)
[2019-01-22] MEDS ORDERED: Albumin 25% 25 GM/100 ML BOT IVPB SCH (09:00)
[2019-01-22] MEDS: Morphine 4 MG/ML VIAL SLOW IVP PRN ×3 (12:21→22:33)
--- NOTE | 2019-01-22 13:09 | PRG ---
DATE OF SERVICE: 01/22/2019 SUBJECTIVE: Ms. Harris continues to struggle with pain control. Endorses difficulty with breathing, difficulty with appetite when fluid accumulation is present. Received large volume paracentesis of 3 L yesterday, able to eat yesterday evening, today feel she is already reaccumulating fluid. This represents her third paracentesis of this hospital stay alone. The patient at the time of my evaluation is lucid, able to inform me of her understanding of her medical condition at the bedside. PHYSICAL EXAMINATION: VITAL SIGNS: Blood pressure 110/74, heart rate 105, temperature 98.4, respiratory rate is 18, saturating 94% on 1 L oxygen per nasal cannula. GENERAL: This is a frail female, appears older than stated age, lying in bed, speaking in short sentences, becomes winded with extended discussion. She is anxious. She is oriented to person, place, time, and understands that her medical situation is "bad." HEENT: Eyes, mild scleral icterus is present. Oropharynx, mucous membranes are moist. NECK: Supple. Full range of motion. HEART: Tachycardic without distinct murmur. LUNGS: Decreased breath sounds at bilateral bases, upper airway with occasional expiratory wheezing present. ABDOMEN: Protuberant, nontender, ascites, distention. EXTREMITIES: Bilateral lower extremity edema present 1 to 2+ throughout the lower extremities, including into her thighs. NEUROLOGIC: She is able to move all extremities bilaterally to command, without focal deficit. IMPRESSION: 1. Alcoholic cirrhosis/end-stage chronic liver disease. 2. Abdominal pain secondary to ascites, ongoing. 3. Hepatitis C, chronic. 4. History of alcohol withdrawal, with alcohol withdrawal syndrome, resolved. 5. Urinary tract infection, compatible with acute cystitis, status post treatment. 6. Metabolic encephalopathy secondary to end-stage liver disease, stabilized. PLAN/RECOMMENDATIONS: 1. GI-advanced Child-Perez class C with massive cirrhosis, Aldactone/Lasix titrated within the last one day. Has required 3 large volume paracenteses during hospital stay. 2. Infectious Disease-antibiotics discontinued. 3. Medical decision making: I held an extensive conversation with the patient to better understand her awareness of her own disease as well as her preferences in managing her disease process. We discussed the end-stage nature of her liver disease, with poor prognosis and heavy disease burden. Discussed code status, the patient agreeable and elects for do not attempt resuscitation. This order was subsequently added to her chart. Additionally, discussed palliative care, continuum toward hospice services, and need for consideration of end of life care planning. The patient asked me to speak with her mother, which I did by phone. Her mother's phone #[phone], Saira Leonard. Alternate cell phone is [phone]. Ms. Leonard is supportive of her daughter's wishes, understands that her daughter has end-stage liver disease with a grim prognosis, and understands that she is hospice eligible based on her current medical status and situation. I discussed once again with the patient after discussing with Ms. Leonard on the phone that her mother supportive of her medical decisions, including electing hospice care. Ms. Harris endorses significant anxiety about what will happen to her from the hospital, as she does not have a discharge plan at this time. Difficulties include lack of funding, lack of insurance resources, and heavy disease burden. Case management is working diligently on options in this most difficult scenario. At this time from a medical standpoint, given her grim prognosis and recurrent difficulties with pain control and ascites, the patient elects to proceed with hospice evaluation. As such, would work toward simplifying her medical regimen, judiciously treating pain as it occurs, and maintaining comfort/dignity care. I offered [facility] [facility] services at this time, which she declines, that may be open to in the future. Discussed with bedside nursing, case management, the patient's surrogate medical decision maker, which is her mother by phone, as well as with the patient, who today is competent for medical decision making. Her greatest concerns are for suffering at the end of life, as well as where her care will be undertaken given her difficult social circumstances. Total time spent thus far, 70 minutes. Job ID: [id number]
[2019-01-22] MEDS: Lorazepam 0.5 MG TAB PO PRN ×2 (14:12→22:36)
[2019-01-22] MEDS: Albumin 25% 25 GM/100 ML BOT IVPB SCH (17:03)
[2019-01-22] MEDS: oxyCODONE 5 MG TAB PO PRN (19:31)
[2019-01-23] MEDS: Senokot S 8.6-50 MG TAB PO SCH ×2 (08:12→19:59)
[2019-01-23] MEDS: Spironolactone 100 MG TAB PO SCH (08:12)
[2019-01-23] MEDS: Furosemide 40 MG TAB PO SCH (08:12)
[2019-01-23] MEDS: Morphine 4 MG/ML VIAL SLOW IVP PRN ×3 (09:10→20:00)
--- NOTE | 2019-01-23 17:12 | PDOC.PN ---
- Subjective Encounter Start Date: 01/23/19 Encounter Start Time: 16:30 Follow up end stage liver disease. Patient in good spirits, able to get OOB and walk to end of hallway with help. Increasing abdominal distention present, presently requiring paracentesis every 3 days or so. Eating small amounts. She is "pondering" hospice - wants to speak with her mother again about it before signing paperwork. Issue/concern is ongoing access to paracentesis - Objective Resuscitation Status - Order Detail: 01/22/19 12:04 Resuscitation Status Routine Resuscitation Status: DNAR: NO Resuscitation Discussed with: Patient and patient's mother by phone Saira Horacio Vital Signs & Weight: Vital Signs (12 hours) Temp Pulse Resp BP Pulse Ox 01/23/19 08:00 93 L 01/23/19 07:25 98.6 F 98 20 104/61 93 L Weight Admit Weight 119 lb 14.4 oz Weight 119 lb 14.4 oz I&O: 01/22/19 01/23/19 01/24/19 06:59 06:59 06:59 Intake Total 470 710 450 Balance 470 710 450 Result Diagrams: 01/21/19 07:52 01/22/19 04:10 Phys Exam - Physical Examination Constitutional: NAD chronically ill appearing female HEENT: PERRLA scleral icterus Neck: no JVD, supple fair areation bilaterally mildly tachy distended, protuberant trace pedal edema Neurological: non-focal, moves all 4 limbs Psychiatric: A&O x 3 Deviation from normal: affect reactive Skin: no rash Dx/Plan (1) End stage liver disease Code(s): K72.90 - HEPATIC FAILURE, UNSPECIFIED WITHOUT COMA Status: Acute (2) Alcoholic cirrhosis Code(s): K70.30 - ALCOHOLIC CIRRHOSIS OF LIVER WITHOUT ASCITES Status: Chronic Qualifiers: Ascites presence: with ascites Qualified Code(s): K70.31 - Alcoholic cirrhosis of liver with ascites Comment: End stage liver disease (3) Abdominal pain Code(s): R10.9 - UNSPECIFIED ABDOMINAL PAIN Status: Acute Qualifiers: Abdominal location: generalized Qualified Code(s): R10.84 - Generalized abdominal pain Comment: Due to ascites (4) Metabolic encephalopathy Code(s): G93.41 - METABOLIC ENCEPHALOPATHY Status: Acute Comment: Improved (5) Hepatitis C Code(s): B19.20 - UNSPECIFIED VIRAL HEPATITIS C WITHOUT HEPATIC COMA Status: Chronic Qualifiers: Viral hepatitis chronicity: chronic Hepatic coma status: without hepatic coma Qualified Code(s): B18.2 - Chronic viral hepatitis C (6) Alcohol withdrawal Code(s): F10.239 - ALCOHOL DEPENDENCE WITH WITHDRAWAL, UNSPECIFIED Status: Resolved Qualifiers: Complication of substance-induced condition: with delirium Qualified Code(s ): F10.231 - Alcohol dependence with withdrawal delirium - Plan * See progress note 01/22 regarding medical decision making. * GI - advanced Child's Perez class C with massive cirrhosis, continue lasix/ aldactone. Request therapeutic paracentesis for 01/24 * ID - abx discontinued, cystitis treated * Check AM BMP specifically to adjust potassium - currently on supplemental potassium, but both lasix and aldactone also titrated about 48 hours ago, so may need adjustment * DNR * Hospice [facility] has seen patient, available for acceptance to their services when patient agreeable. No beds at inpt unit presently. Today patient walked, which is more than she has done throughout her hospital stay. Unfunded, multiple referrals to [facility] denied. Presently needs too high to go home (she lives with a roommate), but if needs/mobility improve, may have no other option, with hospice support.
[2019-01-24] MEDS: Lorazepam 0.5 MG TAB PO PRN ×2 (01:01→23:55)
[2019-01-24] MEDS: Morphine 4 MG/ML VIAL SLOW IVP PRN ×2 (01:01→08:37)
[2019-01-24 04:14] LABS: Anion Gap 9 mmol/L (10-20); BUN (Urea Nitrogen) 11 mg/dL (9.8-20.1); Calc. Creatinine Clearance 121 mL/min (70-130); Carbon Dioxide 27 mmol/L (22-29); Chloride 97 mmol/L (98-107); Estimated GFR-MDRD Greater than 90; Glucose 94 mg/dL (70-105); Potassium 3.7 mmol/L (3.5-5.1); Sodium 129 mmol/L (136-145)
[2019-01-24] MEDS ORDERED: Sodium Bicarbonate 2.5 MEQ/5 ML VIAL ONE (07:39)
[2019-01-24] MEDS: Furosemide 40 MG TAB PO SCH (08:37)
[2019-01-24] MEDS: Senokot S 8.6-50 MG TAB PO SCH ×2 (08:37→20:11)
[2019-01-24] MEDS: Spironolactone 100 MG TAB PO SCH ×2 (08:37→20:11)
--- NOTE | 2019-01-24 08:56 | ULT ---
Exam: Ultrasound guided paracentesis HISTORY: Ascites COMPARISON: 01/21/2019 FINDINGS: Successful ultrasound-guided paracentesis. Total of 3 L of yellow color ascites was aspirat ed. TECHNIQUE: Consent obtained reformatory ultrasound-guided paracentesis. Right lower quadrant was deem ed appropriate. Skin was prepped and draped in a sterile fashion. 1% lidocaine, buffered with sodium bicarbonate was used for local anesthesia. Under ultrasound guidance, a 5 Amharic 7 cm Yueh cat heter is advanced in the peritoneal space. A total of 3 L of yellow color ascites was aspirated. No immediate or postprocedural complications IMPRESSION: Successful ultrasound-guided paracentesis.
[2019-01-24] MEDS: Ondansetron PF 4 MG/2 ML Vial IVP PRN (09:10)
--- NOTE | 2019-01-24 11:14 | PDOC.PN ---
- Subjective Encounter Start Date: 01/24/19 Encounter Start Time: 11:11 Subjective: Feeling better. -: Had another paracentesis today. - Objective Resuscitation Status - Order Detail: 01/22/19 12:04 Resuscitation Status Routine Resuscitation Status: DNAR: NO Resuscitation Discussed with: Patient and patient's mother by phone Saira Leonard Vital Signs & Weight: Vital Signs (12 hours) Temp Pulse Resp BP Pulse Ox 01/24/19 08:25 98.3 F 100 18 137/71 93 L 01/24/19 08:00 93 L Weight Admit Weight 119 lb 14.4 oz Weight 119 lb 14.4 oz I&O: 01/23/19 01/24/19 01/25/19 06:59 06:59 06:59 Intake Total 710 1230 150 Balance 710 1230 150 Result Diagrams: 01/21/19 07:52 01/24/19 03:55 Phys Exam - Physical Examination Constitutional: NAD icteric. HEENT: PERRLA, moist MMs Neck: no JVD, supple Respiratory: no wheezing, no rales, no rhonchi fair air entry bilaterally Cardiovascular: RRR Gastrointestinal: soft, positive bowel sounds enlarged mild to moderate bilateral leg edema Neurological: non-focal, moves all 4 limbs Psychiatric: A&O x 3 Dx/Plan (1) Ascites due to alcoholic cirrhosis Code(s): K70.31 - ALCOHOLIC CIRRHOSIS OF LIVER WITH ASCITES Status: Acute Comment: Decompensated (2) Chronic alcohol abuse Code(s): F10.10 - ALCOHOL ABUSE, UNCOMPLICATED Status: Acute (3) Bilateral pleural effusion Code(s): J90 - PLEURAL EFFUSION, NOT ELSEWHERE CLASSIFIED Status: Acute (4) Abdominal pain Code(s): R10.9 - UNSPECIFIED ABDOMINAL PAIN Status: Acute Qualifiers: Abdominal location: generalized Qualified Code(s): R10.84 - Generalized abdominal pain Comment: Due to ascites (5) Cholelithiases Code(s): K80.20 - CALCULUS OF GALLBLADDER W/O CHOLECYSTITIS W/O OBSTRUCTION Status: Acute Qualifiers: Cholelithiasis location: gallbladder Cholecystitis acuity: acute Biliary obstruction: without biliary obstruction (6) Hypokalemia Code(s): E87.6 - HYPOKALEMIA Status: Acute Comment: Klor-con 40meq daily, serial K+ monitoring, improved (7) UTI (urinary tract infection) Status: Acute Qualifiers: Urinary tract infection type: acute cystitis Hematuria presence: without hematuria Qualified Code(s): N30.00 - Acute cystitis without hematuria Comment: Continue Rocephin IV daily (8) Alcoholic cirrhosis Code(s): K70.30 - ALCOHOLIC CIRRHOSIS OF LIVER WITHOUT ASCITES Status: Chronic Qualifiers: Ascites presence: with ascites Qualified Code(s): K70.31 - Alcoholic cirrhosis of liver with ascites Comment: End stage liver disease (9) Hepatitis C Code(s): B19.20 - UNSPECIFIED VIRAL HEPATITIS C WITHOUT HEPATIC COMA Status: Chronic Qualifiers: Viral hepatitis chronicity: chronic Hepatic coma status: without hepatic coma Qualified Code(s): B18.2 - Chronic viral hepatitis C - Plan Increase aldactone to 100 bid -: increase lactulose to 20 gm bid. -: DC IV morphine. -: Start neurontin -: Start multivitamin supplementation. Follow labs and weights. * .
[2019-01-24] MEDS ORDERED: Thiamine 100 MG TAB PO SCH (12:00)
[2019-01-24] MEDS: Gabapentin 300 MG CAP PO SCH ×2 (13:27→20:10)
[2019-01-24] MEDS: oxyCODONE 5 MG TAB PO PRN (20:09)
[2019-01-25] MEDS: oxyCODONE 5 MG TAB PO PRN ×5 (01:22→22:18)
[2019-01-25] MEDS: Spironolactone 100 MG TAB PO SCH ×2 (08:51→20:22)
[2019-01-25] MEDS: Senokot S 8.6-50 MG TAB PO SCH ×2 (08:51→20:22)
[2019-01-25] MEDS: Furosemide 40 MG TAB PO SCH (08:51)
[2019-01-25] MEDS: Propranolol 10 MG TAB PO SCH ×3 (08:51→20:23)
[2019-01-25] MEDS: Gabapentin 300 MG CAP PO SCH ×3 (08:51→20:22)
[2019-01-25] MEDS: Cyanocobalamin (Vitamin B-12) 1,000 MCG TAB PO SCH (08:51)
[2019-01-25] MEDS: Folic Acid 1 MG TAB PO SCH (08:52)
[2019-01-25] MEDS: Thiamine 100 MG TAB PO SCH (08:52)
[2019-01-25 09:03] LABS: #Eosinphils 0.3 thou/uL (0.0-0.7); #Lymphocytes 2.2 thou/uL (1.20-3.40); #Monocytes 1.3 thou/uL (0.11-0.59); #Neutrophils 14.9 thou/uL (1.40-6.50); %Basophils 0.3 % (0.0-1.0); %Eosinophils 1.4 % (0.0-10.0); %Lymphocytes 11.6 % (21.0-51.0); %Monocytes 7.1 % (0.0-10.0); %Neutrophils 79.7 % (42.0-75.0); Mean Corpuscular HGB CONC 30.7 g/dL (32.0-36.0); Mean Platelet Volume 9.5 fL (7.4-10.4); Platelet Count 131 thou/uL (130-400); Red Blood Cell (RBC) Count 3.53 mill/uL (4.20-5.40); White Blood Cell (WBC) Count 18.7 thou/uL (4.8-10.8)
[2019-01-25 09:05] LABS: ALT (SGPT) 64 U/L (8-55); AST (SGOT) 144 U/L (5-34); Albumin 2.3 g/dL (3.5-5.0); Alkaline Phosphatase 132 U/L (40-150); Anion Gap 10 mmol/L (10-20); BUN (Urea Nitrogen) 10 mg/dL (9.8-20.1); Bilirubin, Total 14.6 mg/dL (0.2-1.2); Calc. Creatinine Clearance 99 mL/min (70-130); Calcium 8.4 mg/dL (7.8-10.44); Carbon Dioxide 28 mmol/L (22-29); Chloride 96 mmol/L (98-107); Estimated GFR-MDRD Greater than 90; Globulin 3.4 g/dL (2.4-3.5); Glucose 99 mg/dL (70-105); Magnesium 1.3 mg/dL (1.6-2.6); Potassium 3.7 mmol/L (3.5-5.1); Protein, Total 5.7 g/dL (6.0-8.3); Sodium 130 mmol/L (136-145)
--- NOTE | 2019-01-25 15:51 | PDOC.PN ---
- Subjective Encounter Start Date: 01/25/19 Encounter Start Time: 15:49 Subjective: Seen and examined. -: still complaining of some pain. -: Now inclined to hetting hospice care - Objective Resuscitation Status - Order Detail: 01/22/19 12:04 Resuscitation Status Routine Resuscitation Status: DNAR: NO Resuscitation Discussed with: Patient and patient's mother by phone Saira Leonard Vital Signs & Weight: Vital Signs (12 hours) Temp Pulse Resp BP Pulse Ox 01/25/19 08:15 98.0 F 90 16 105/70 93 L 01/25/19 08:00 93 L Weight Admit Weight 119 lb 14.4 oz Weight 119 lb 14.4 oz I&O: 01/24/19 01/25/19 01/26/19 06:59 06:59 06:59 Intake Total 1230 870 Balance 1230 870 Result Diagrams: 01/25/19 08:24 01/25/19 08:24 Phys Exam - Physical Examination Constitutional: NAD HEENT: PERRLA Neck: supple Respiratory: no wheezing, no rales, no rhonchi fair air entry bilaterally Cardiovascular: RRR Gastrointestinal: soft, positive bowel sounds enlarged mild to moderate bilateral leg edema Neurological: moves all 4 limbs Psychiatric: A&O x 3 Dx/Plan (1) Ascites due to alcoholic cirrhosis Code(s): K70.31 - ALCOHOLIC CIRRHOSIS OF LIVER WITH ASCITES Status: Acute Comment: Decompensated (2) Chronic alcohol abuse Code(s): F10.10 - ALCOHOL ABUSE, UNCOMPLICATED Status: Acute (3) Bilateral pleural effusion Code(s): J90 - PLEURAL EFFUSION, NOT ELSEWHERE CLASSIFIED Status: Acute (4) Abdominal pain Code(s): R10.9 - UNSPECIFIED ABDOMINAL PAIN Status: Acute Qualifiers: Abdominal location: generalized Qualified Code(s): R10.84 - Generalized abdominal pain Comment: Due to ascites (5) Cholelithiases Code(s): K80.20 - CALCULUS OF GALLBLADDER W/O CHOLECYSTITIS W/O OBSTRUCTION Status: Acute Qualifiers: Cholelithiasis location: gallbladder Cholecystitis acuity: acute Biliary obstruction: without biliary obstruction (6) Hypokalemia Code(s): E87.6 - HYPOKALEMIA Status: Acute Comment: Klor-con 40meq daily, serial K+ monitoring, improved (7) UTI (urinary tract infection) Status: Acute Qualifiers: Urinary tract infection type: acute cystitis Hematuria presence: without hematuria Qualified Code(s): N30.00 - Acute cystitis without hematuria Comment: Continue Rocephin IV daily (8) Alcoholic cirrhosis Code(s): K70.30 - ALCOHOLIC CIRRHOSIS OF LIVER WITHOUT ASCITES Status: Chronic Qualifiers: Ascites presence: with ascites Qualified Code(s): K70.31 - Alcoholic cirrhosis of liver with ascites Comment: End stage liver disease (9) Hepatitis C Code(s): B19.20 - UNSPECIFIED VIRAL HEPATITIS C WITHOUT HEPATIC COMA Status: Chronic Qualifiers: Viral hepatitis chronicity: chronic Hepatic coma status: without hepatic coma Qualified Code(s): B18.2 - Chronic viral hepatitis C - Plan Had extensive discussion with patient, case management, palliative care and hospice care personal indivulally and then collectively. Patient has decided to proceed with hospice care. However, due to need for frequent paracentesis, hospital care facility is requested [place] drain or a contract with hospital to facilitate as needed outpatient paracentesis. I contacted interventional radiologist and he said thata they dont place Pleurx catheters anymore. I then consulted Gen surgery to have that placed. Plan the is to discharge patient with inpatient hospice once [place] drain is placed or arrangement with hospital about PRN paracentessis finalized. I will also increase pain medications. I will also substitute lasix with torsemide and increase dose of diuresis. Out of hospital DNR was also signed. * .
[2019-01-25] MEDS ORDERED: Torsemide 20 MG TAB PO SCH (16:30)
[2019-01-25] MEDS ORDERED: CEFAZOLIN 2 GM in Premix Bag 1 BAG IVPB SCH (20:15)
--- NOTE | 2019-01-25 22:45 | PRG ---
DATE OF SERVICE: 01/25/2019 Ms. Harris, I had seen previously regarding her acute hepatitis alcoholism. She has refractory ascites. I have been asked to see. She is on hospice. End-stage liver disease. She has coagulopathy. Her platelet count has improved. I have been asked to see her regarding placement of peritoneal dialysis catheter for intermittent drainage for palliative care. She agrees to this plan. Abdomen is soft, distended, positive fluid wave, nontender, however, which is a marked change when I last saw her. ASSESSMENT AND PLAN: End-stage liver disease. PLAN: Placement of laparoscopic peritoneal dialysis catheter tomorrow. Her risks and benefits explained, she consents. Job ID: [id number]
[2019-01-26] MEDS: Cyanocobalamin (Vitamin B-12) 1,000 MCG TAB PO SCH (08:06)
[2019-01-26] MEDS: Folic Acid 1 MG TAB PO SCH (08:06)
[2019-01-26] MEDS: Gabapentin 300 MG CAP PO SCH ×3 (08:06→20:05)
[2019-01-26] MEDS: Senokot S 8.6-50 MG TAB PO SCH ×2 (08:07→20:05)
[2019-01-26] MEDS: Thiamine 100 MG TAB PO SCH (08:07)
[2019-01-26] MEDS: Torsemide 20 MG TAB PO SCH (08:07)
[2019-01-26] MEDS: Spironolactone 100 MG TAB PO SCH ×2 (08:07→20:05)
--- NOTE | 2019-01-26 10:02 | PRG ---
DATE OF SERVICE: 01/26/2019 SUBJECTIVE: The patient is having some pain this morning. Reports her abdomen does not feel too bad, but she is having some discomfort in her right leg. She spends almost all of her time lying on her right side and says that right leg is starting to get bigger. She requested some pain medications this morning. OBJECTIVE: VITAL SIGNS: Temperature 98.1, pulse 76, respirations 18, O2 saturation 97% on room air, and blood pressure 102/62. GENERAL APPEARANCE: Older than stated age appearing female, in no distress. She is awake, alert, conversant. HEART: Regular rate and rhythm without murmurs. LUNGS: Diminished at the bases, but otherwise clear. ABDOMEN: Slightly distended, but not tense and nontender. EXTREMITIES: She has some pitting edema and slight tenderness in the lateral right thigh area, which appears to be a dependent edema. IMPRESSION AND PLAN: 1. End-stage liver disease secondary to alcoholic cirrhosis. The patient has recurrent ascites as well. The plan is for her to get a peritoneal catheter placed today, so that she can have intermittent outpatient paracentesis and then subsequent she will go on hospice. 2. Alcoholic cirrhosis. 3. Chronic alcohol abuse. 4. Bilateral pleural effusions secondary to above. 5. Abdominal pain, not too bad today. 6. Right lower extremity pain and edema. This appears to be dependent edema secondary to the liver failure and hypoalbuminemia. I discussed positional changes, try to help to relieve that. Also talked about her pain medications in general. At this point, her blood pressure is borderline low. I am afraid if we try to give her any IV pain medications that we may lower her blood pressure to the point she will not be able to get this procedure done today. We talked about it and ultimately she is willing to hold off until we get the procedure done. 7. Chronic hepatitis C. 8. Urinary tract infection, currently off antibiotics. Job ID: [id number]
[2019-01-26] MEDS: Propranolol 10 MG TAB PO SCH ×3 (10:13→21:00)
[2019-01-26] MEDS ORDERED: Bupivacaine/Epinephrine 0.25% 30 ML VIAL ONE (15:26)
[2019-01-26] MEDS ORDERED: Fentanyl 100 MCG/2 ML VIAL ONE (15:30)
[2019-01-26] MEDS ORDERED: Heparin 10,000 UNITS/1 ML VIAL ONE (16:10)
[2019-01-26] MEDS ORDERED: HYDROmorphone 2 MG/ML VIAL SLOW IVP PRN (16:16)
[2019-01-26] MEDS ORDERED: Meperidine HCl/PF 25 MG/ML VIAL SLOW IVP PRN (16:16)
[2019-01-26] MEDS ORDERED: Ondansetron HCl/PF 4 MG/2 ML Vial IVP PRN (16:16)
[2019-01-26] MEDS ORDERED: Promethazine HCl 25 MG/ML VIAL SLOW IVP PRN (16:16)
[2019-01-26] MEDS ORDERED: Promethazine HCl 25 MG/ML VIAL IM PRN (16:16)
[2019-01-26] MEDS ORDERED: PACU-Morphine 4MG/ML VIAL SLOW IVP PRN (16:16)
[2019-01-26] MEDS ORDERED: Morphine Sulfate 2 MG/ML SYRINGE SLOW IVP PRN (16:16)
[2019-01-26] MEDS ORDERED: Glycopyrrolate 0.2 MG/ML 5 ML SYRINGE ONE (17:09)
[2019-01-26] MEDS ORDERED: PROPOFOL 200 MG/20 ML VIAL ONE (17:09)
[2019-01-26] MEDS ORDERED: Ondansetron PF 4 MG/2 ML Vial ONE (17:09)
[2019-01-26] MEDS ORDERED: PHENYLEPHRINE-NS 100 MCG/ML 10 ML SYRINGE ONE (17:09)
[2019-01-26] MEDS ORDERED: Rocuronium Bromide 10 MG/ML (10ML VIAL) ONE (17:09)
[2019-01-26] MEDS ORDERED: Lidocaine 1% PF 5 ML VIAL ONE (17:09)
[2019-01-26] MEDS: oxyCODONE 5 MG TAB PO PRN (20:07)
--- NOTE | 2019-01-27 00:07 | OP ---
DATE OF PROCEDURE: 01/26/2019 PREOPERATIVE DIAGNOSIS: Alcohol and hepatitis C cirrhosis with refractory ascites in need of PleurX catheter placement. POSTOPERATIVE DIAGNOSIS: Alcohol and hepatitis C cirrhosis with refractory ascites in need of PleurX catheter placement. PROCEDURE PERFORMED: Laparoscopic evacuation of 3.2 L of ascites, laparoscopic PleurX catheter placement. ANESTHESIA: General, local 0.5% Marcaine with epinephrine. DESCRIPTION OF PROCEDURE: The patient was taken to the operating room under general anesthesia, abdomen was prepared with ChloraPrep and draped in routine fashion. Local anesthetic was infiltrated in the skin and subcutaneous tissue about the operative site. Bilateral far lateral subcostal incision was made. A pneumoperitoneum to 15 mmHg was obtained with a Veress needle, replaced with a 5 port, video laparoscope was inserted. Contralateral port placed under laparoscopic visualization. In the left lower quadrant per the patient's request, PleurX catheter kit, dilator, and Peel-Away sheath placed through the stab incision, tunneled through the subcutaneous tissue medially and caudally into the rectus sheath visualized laparoscopically penetrating the abdominal cavity caudally into the pelvis, visualized laparoscopically removing the dilator and placing the PleurX catheter with the cuff beneath the skin, subcutaneous tissue, and the Peel-Away sheath removed. Laparoscopic catheter noted to be in good position. Ascites had been evacuated 3.2 L. Pneumoperitoneum and maximal ascites evacuated. Trocar catheter closed with continuous subcutaneous suture of 4-0 Monocryl and PleurX catheter secured with 4-0 subcuticular Dermabond, tightened around the catheter and then catheter further secured with nylon suture, which can be removed in about 2 weeks. The patient tolerated the procedure well. Sterile dressings applied. Job ID: [id number]
[2019-01-27] MEDS: oxyCODONE 5 MG TAB PO PRN ×3 (05:42→19:50)
[2019-01-27] MEDS: Cyanocobalamin (Vitamin B-12) 1,000 MCG TAB PO SCH (09:04)
[2019-01-27] MEDS: Folic Acid 1 MG TAB PO SCH (09:04)
[2019-01-27] MEDS: Senokot S 8.6-50 MG TAB PO SCH ×2 (09:04→19:47)
[2019-01-27] MEDS: Spironolactone 100 MG TAB PO SCH ×2 (09:04→21:00)
[2019-01-27] MEDS: Propranolol 10 MG TAB PO SCH ×3 (09:05→19:45)
[2019-01-27] MEDS: Thiamine 100 MG TAB PO SCH (09:05)
[2019-01-27] MEDS: Torsemide 20 MG TAB PO SCH (09:05)
[2019-01-27] MEDS: Gabapentin 300 MG CAP PO SCH ×3 (09:05→21:00)
--- NOTE | 2019-01-27 09:57 | PDOC.PN ---
- Subjective Encounter Start Date: 01/27/19 Encounter Start Time: 09:55 Subjective: No new problem -: Feeling better. -: S/p PD catheter placement for drainage of ascitis - Objective Resuscitation Status - Order Detail: 01/22/19 12:04 Resuscitation Status Routine Resuscitation Status: DNAR: NO Resuscitation Discussed with: Patient and patient's mother by phone Saira Leonard Vital Signs & Weight: Vital Signs (12 hours) Temp Pulse Resp BP Pulse Ox 01/27/19 08:00 98.3 F 81 16 90/50 L 93 L Weight Admit Weight 119 lb 14.4 oz Weight 119 lb 14.4 oz I&O: 01/26/19 01/27/19 01/28/19 06:59 06:59 06:59 Intake Total 1380 1330 Balance 1380 1330 Result Diagrams: 01/25/19 08:24 01/25/19 08:24 Phys Exam - Physical Examination Constitutional: NAD icteric. afebrile HEENT: PERRLA, moist MMs Neck: no JVD, supple Respiratory: no wheezing, no rales, no rhonchi, clear to auscultation bilateral Cardiovascular: RRR, no significant murmur Gastrointestinal: soft, non-tender, positive bowel sounds PD catheter noted Musculoskeletal: no edema, pulses present Neurological: non-focal, moves all 4 limbs Psychiatric: A&O x 3 Deviation from normal: icteric. Dx/Plan (1) Ascites due to alcoholic cirrhosis Code(s): K70.31 - ALCOHOLIC CIRRHOSIS OF LIVER WITH ASCITES Status: Acute Comment: Decompensated (2) Chronic alcohol abuse Code(s): F10.10 - ALCOHOL ABUSE, UNCOMPLICATED Status: Acute (3) Bilateral pleural effusion Code(s): J90 - PLEURAL EFFUSION, NOT ELSEWHERE CLASSIFIED Status: Acute (4) Abdominal pain Code(s): R10.9 - UNSPECIFIED ABDOMINAL PAIN Status: Acute Qualifiers: Abdominal location: generalized Qualified Code(s): R10.84 - Generalized abdominal pain Comment: Due to ascites (5) Cholelithiases Code(s): K80.20 - CALCULUS OF GALLBLADDER W/O CHOLECYSTITIS W/O OBSTRUCTION Status: Acute Qualifiers: Cholelithiasis location: gallbladder Cholecystitis acuity: acute Biliary obstruction: without biliary obstruction (6) Hypokalemia Code(s): E87.6 - HYPOKALEMIA Status: Acute Comment: Klor-con 40meq daily, serial K+ monitoring, improved (7) UTI (urinary tract infection) Status: Acute Qualifiers: Urinary tract infection type: acute cystitis Hematuria presence: without hematuria Qualified Code(s): N30.00 - Acute cystitis without hematuria Comment: Continue Rocephin IV daily (8) Alcoholic cirrhosis Code(s): K70.30 - ALCOHOLIC CIRRHOSIS OF LIVER WITHOUT ASCITES Status: Chronic Qualifiers: Ascites presence: with ascites Qualified Code(s): K70.31 - Alcoholic cirrhosis of liver with ascites Comment: End stage liver disease (9) Hepatitis C Code(s): B19.20 - UNSPECIFIED VIRAL HEPATITIS C WITHOUT HEPATIC COMA Status: Chronic Qualifiers: Viral hepatitis chronicity: chronic Hepatic coma status: without hepatic coma Qualified Code(s): B18.2 - Chronic viral hepatitis C - Plan Continue current treatment. -: for discharge to hospice tomorrow * .
--- NOTE | 2019-01-27 16:58 | PRG ---
DATE OF SERVICE: 01/27/2019 SUBJECTIVE: Saira Harris is doing well today. Yesterday, I placed a peritoneal catheter for palliative control of her ascites, 3.2 L was drained. Today, the patient is doing well. OBJECTIVE: ABDOMEN: Soft and nontender. Surgical wounds look good. There is no evidence of ascites leakage. PLAN: At this point, I will see her as needed. Please call if necessary. I will follow her up in the office as needed. She does not need to visit unless she has problems. Home health nursing, hospice will take care of her peritoneal catheter and they need to drainage. Job ID: [id number]
[2019-01-28] MEDS: oxyCODONE 5 MG TAB PO PRN ×3 (01:11→09:55)
[2019-01-28 07:51] LABS: ALT (SGPT) 50 U/L (8-55); AST (SGOT) 167 U/L (5-34); Albumin 2.3 g/dL (3.5-5.0); Alkaline Phosphatase 151 U/L (40-150); Anion Gap 15 mmol/L (10-20); BUN (Urea Nitrogen) 19 mg/dL (9.8-20.1); Bilirubin, Total 11.8 mg/dL (0.2-1.2); Calc. Creatinine Clearance 61 mL/min (70-130); Calcium 8.2 mg/dL (7.8-10.44); Carbon Dioxide 27 mmol/L (22-29); Chloride 88 mmol/L (98-107); Estimated GFR-MDRD 65; Globulin 3.8 g/dL (2.4-3.5); Glucose 116 mg/dL (70-105); Protein, Total 6.1 g/dL (6.0-8.3); Sodium 126 mmol/L (136-145)
[2019-01-28 09:26] VITALS: TEMP 97.8
[2019-01-28] MEDS: Folic Acid 1 MG TAB PO SCH (09:49)
[2019-01-28] MEDS: Gabapentin 300 MG CAP PO SCH ×2 (09:49→14:56)
[2019-01-28] MEDS: Cyanocobalamin (Vitamin B-12) 1,000 MCG TAB PO SCH (09:49)
[2019-01-28] MEDS: Propranolol 10 MG TAB PO SCH ×2 (09:49→14:58)
[2019-01-28] MEDS: Spironolactone 100 MG TAB PO SCH (09:50)
[2019-01-28] MEDS: Senokot S 8.6-50 MG TAB PO SCH (09:50)
[2019-01-28] MEDS: Thiamine 100 MG TAB PO SCH (09:50)
[2019-01-28] MEDS: Torsemide 20 MG TAB PO SCH (09:51)
[2019-01-28] MEDS ORDERED: diphenhydrAMINE 25 MG CAP PO SCH (14:00)
[2019-01-28 14:59] VITALS: BP 97/58
--- NOTE | 2019-01-29 07:43 | DIS ---
DATE OF ADMISSION: 01/08/2019 DATE OF DISCHARGE: 01/28/2019 DISCHARGE DIAGNOSES: 1. End-stage liver disease. 2. Alcoholic liver cirrhosis. 3. Recurrent ascites, requiring regular paracenteses. 4. Chronic alcohol abuse. 5. Abdominal pain. 6. Bilateral pleural effusion. 7. Cholelithiasis. 8. Hypokalemia. 9. Urinary tract infection. 10. Hepatitis C infection. 11. Moderate protein-calorie malnutrition. 12. Abnormal liver function test. 13. Esophagitis. 14. Gastritis. 15. Hiatal hernia. 16. Hemorrhoids. CONSULTANTS: 1. Gastroenterology. 2. General Surgery. PROCEDURES PERFORMED: 1. Colonoscopy. 2. Esophagogastroduodenoscopy. 3. Multiple episodes of paracentesis. 4. Placement of PD catheter. HOSPITAL COURSE: This is a 53-year-old female with known history of chronic alcohol abuse, hypertension and others, who was admitted due to lower abdominal pain associated with nausea and vomiting. On presentation, the patient was found to have hypokalemia as well as mild anemia with hemoglobin of 11.9 as well as abnormal urinalysis, positive for bacteria and leukocyte esterase, and abnormal liver enzymes. Further evaluation with CT scan of the abdomen showed mild patchy infiltrate versus atelectatic changes in the lung bases as well as tiny pleural effusion, fatty liver, ascites, and cholelithiasis. The patient was further evaluated with HIDA scan, which was negative for cholecystitis. She also had further evaluation with CT scan and ultrasound, which showed features of cirrhosis. Impression of decompensated cirrhosis with ascites was made and GI consult was obtained. The patient was further evaluated with upper and lower endoscopy. Due to marked ascites, the patient had paracenteses, but the fluid reaccumulated shortly necessitating recurrent paracenteses every 3 days. GI further felt that the patient had end-stage liver disease with options including hospice and liver transplant. Given that the patient had no insurance, hospice option was explored. Diuretic therapy was optimized with improvement in bilateral leg swelling. The patient elected to proceed with hospice and General Surgery consult was later obtained for placement of peritoneal catheter for p.r.n. drainage of ascitic fluid. The patient's condition improved remarkably such that the leg swelling resolved and abdominal pain improved. Shortness of breath noticed on presentation also improved. The patient was later discharged to hospice facility for hospice care. Of note, the patient was treated for urinary tract infection with appropriate antibiotics. PHYSICAL EXAMINATION: VITAL SIGNS: Temperature 97.8, pulse 83, respiratory rate 18, SpO2 of 96% on room air, and blood pressure 89/55. GENERAL: Thin elderly-looking female, in no obvious distress. Afebrile. Anicteric. Acyanotic. HEENT: Normocephalic and atraumatic. Oral mucosa is moist. CARDIOVASCULAR: Regular rhythm and rate with normal heart sounds 1 and 2. RESPIRATORY: Good air entry bilaterally with no obvious crackle. ABDOMEN: Enlarged. PD catheter noticed. Bowel sounds are normal. EXTREMITIES: Grossly normal, atraumatic, with no edema. NEUROLOGIC: Conscious and alert, oriented x3 with appropriate mental status. CONDITION AT DISCHARGE: Improved. DISCHARGE MEDICATIONS: 1. Cyanocobalamin 1000 mcg p.o. daily. 2. Folic acid 1 mg p.o. daily. 3. Neurontin 300 mg p.o. t.i.d. 4. Albuterol/ipratropium nebulization every 4 hours p.r.n. for shortness of breath. 5. Lactulose 20 g p.o. b.i.d. 6. Lorazepam 0.5 mg q.6 p.r.n. for anxiety. 7. Zofran 4 mg q.6 p.r.n. 8. Oxycodone 5 mg p.o. q.4 p.r.n. 9. Sennoside-docusate 2 tablets p.o. b.i.d. p.r.n. for constipation. 10. Spironolactone 100 mg p.o. daily. 11. Thiamine 100 mg p.o. daily. 12. Demadex 20 mg p.o. daily. TIME SPENT: This discharge took more than 40 minutes. Job ID: [id number]
== END 2019-01-28 18:23 | disposition hospice, inpatient (51) | DRG 405 ==
LOC: ERS 20:09 → INTOOBSV 01-08 04:44 → ERHOLD 01-08 04:44 → ONC 01-08 17:31 → OBSVTOIN 01-08 17:35
PROVIDERS: ADMIT Internal Medicine; ATTEND Internal Medicine
PROC: 0W9G3ZX Drainage of Peritoneal Cavity, Percutaneous Approach, Diagnostic (ICD-10-PCS; 2019-01-10)
PROC: 0W9G3ZZ Drainage of Peritoneal Cavity, Percutaneous Approach (ICD-10-PCS; 2019-01-15)
PROC: 0DJD8ZZ Inspection of Lower Intestinal Tract, Via Natural or Artificial Opening Endoscopic (ICD-10-PCS; principal; 2019-01-17)
PROC: 0DJ08ZZ Inspection of Upper Intestinal Tract, Via Natural or Artificial Opening Endoscopic (ICD-10-PCS; 2019-01-17)
PROC: 0W9G3ZZ Drainage of Peritoneal Cavity, Percutaneous Approach (ICD-10-PCS; 2019-01-18)
PROC: 0W9G3ZZ Drainage of Peritoneal Cavity, Percutaneous Approach (ICD-10-PCS; 2019-01-21)
PROC: 0W9G3ZZ Drainage of Peritoneal Cavity, Percutaneous Approach (ICD-10-PCS; 2019-01-24)
PROC: 0W1G4JY Bypass Peritoneal Cavity to Lower Vein with Synthetic Substitute, Percutaneous Endoscopic Approach (ICD-10-PCS; 2019-01-26)
DX: K70.31 Alcoholic cirrhosis of liver with ascites (principal); G93.41 Metabolic encephalopathy; K56.7 Ileus, unspecified; F10.239 Alcohol dependence with withdrawal, unspecified; N30.00 Acute cystitis without hematuria; E44.0 Moderate protein-calorie malnutrition; F17.210 Nicotine dependence, cigarettes, uncomplicated; K80.20 Calculus of gallbladder without cholecystitis without obstruction; E87.6 Hypokalemia; K72.90 Hepatic failure, unspecified without coma; K76.0 Fatty (change of) liver, not elsewhere classified; D53.9 Nutritional anemia, unspecified; K64.9 Unspecified hemorrhoids; L91.8 Other hypertrophic disorders of the skin; K20.9 Esophagitis, unspecified; K44.9 Diaphragmatic hernia without obstruction or gangrene; K29.70 Gastritis, unspecified, without bleeding; B18.2 Chronic viral hepatitis C; K70.11 Alcoholic hepatitis with ascites; Z68.22 Body mass index [BMI] 22.0-22.9, adult; Z82.49 Family history of ischemic heart disease and other diseases of the circulatory system; Z80.1 Family history of malignant neoplasm of trachea, bronchus and lung; Z80.0 Family history of malignant neoplasm of digestive organs
CPT/HCPCS: 36415; 36416; 36430; 49083; 71045; 74019; 74177; 76705; 78227; 80048; 80053; 80074; 80306; 81003; 81015; 82042; 82140; 82274; 82607; 82746; 82945; 83615; 83690; 83735; 84100; 84157; 85007; 85025; 85027; 85060; 85610; 85730; 86850; 86900; 86901; 87070; 87077; 87086; 87186; 87205; 87522; 89051; 93005; 94640; 94760; 96365; 96366; 96367; 96372; 96375; 99406; A9537; C1729; J0500; J0690; J0696; J1200; J1644; J1885; J2001; J2060; J2270; J2405; J2543; J2704; J2765; J3010; J3411; J3475; J3480; J3490; J7042; J7050; J7510; J7620; P9035; P9047; P9059; Q0163; Q9966